=== PATIENT | male | born 1930 | race Caucasian/White ===

== ENCOUNTER 2016-09-08 23:59 | Inpatient (IN) ==
[2016-09-09] MEDS ORDERED: ALBUTEROL NEB INH ONE (00:20)
[2016-09-09] MEDS ORDERED: DUONEB (A & A) INH ONE (00:20)
[2016-09-09 00:25] LABS: BASO% 0.1 % (0.0-0.8); HEMATOCRIT 38.1 % (42.0-52.0); LYMPH# 0.49 X1000 (1.2-3.4); MANUAL DIFF NEEDED? NO; MCHC 34.1 g/dL (33-37); MCV 93.8 FL (81-99); MONO# 0.44 X1000 (0.11-0.59); MONO% 4.5 % (1.7-9.3); MPV 10.1 FL (7.4-10.4); NEUT% 90.4 % (42.2-75.2); PLT 174 X1000 (130-400); RBC 4.06 XMIL (4.7-6.1)
[2016-09-09] MEDS ORDERED: NS 1,000 ML IV ONE ×2 (00:34→01:06)
[2016-09-09] MEDS ORDERED: ZITHROMAX 500 MG/NS 500 MG/250 ML IVPB IV ONE (00:36)
[2016-09-09] MEDS ORDERED: ROCEPHIN 1 GM/NS 1 GM/50 ML IVPB IV ONE (00:36)
[2016-09-09 00:37] LABS: ALBUMIN 3.2 g/dL (3.5-5.0); CALCIUM 8.3 mg/dL (8.8-10.2); POTASSIUM 3.5 mmol/L (3.5-5.1); TOTAL BILIRUBIN 0.94 mg/dL (0.20-1.00); TOTAL PROTEIN 5.8 g/dL (6.3-8.3)
[2016-09-09] MEDS: ZOSYN 3.375 GM/NS 3.375 GM/50 ML IVPB IV SCH ×4 (03:52→20:20)
--- NOTE | 2016-09-09 05:19 | EKG Report ---
Test Performed on : 09/08/2016 11:57:44 PM Test Reason : Re-Ordered/AMS Blood Pressure : / mmHG Vent. Rate : 113 BPM Atrial Rate : 091 BPM P-R Int : 000 ms QRS Dur : 074 ms QT Int : 314 ms P-R-T Axes : 000 008 028 degrees QTc Int : 430 ms Atrial fibrillation. with rapid ventricular response. with premature ventricular or aberrantly condu cted complexes. Nonspecific ST abnormality Abnormal ECG When compared with ECG of 31-OCT-2013 12:43, No significant change was found Unconfirmed Result
[2016-09-09] MEDS: LASIX IV SCH ×2 (06:47→17:05)
[2016-09-09] MEDS: SYNTHROID PO SCH (06:48)
[2016-09-09] MEDS: PRILOSEC PO SCH (06:48)
--- NOTE | 2016-09-09 07:20 | HISTORY AND PHYSICAL ---
PRIMARY CARE PHYSICIAN: Dr. Cezar Barros. CHIEF COMPLAINT: Congestion and weakness. Low-grade temperature x1 day. HISTORY OF PRESENTING ILLNESS: An 86-year-old male with a history of atrial fibrillation, hypertension and COPD that presented to the emergency department with a 1-day history of having congestion, weakness and a low-grade temperature. The patient is a poor historian and most of the history is obtained from his . As per , the patient was feeling more congested and getting more weak. The patient was evaluated in the ER. He had a chest x-ray done which was suspicious for infiltrate and it was thought that he has underlying pneumonia. During his initial presentation he was hypotensive. He was given IV fluids, and his blood pressure had improved. Patient will need hospitalization for further management. At the time of my examination, he however denied having any nausea vomiting, diarrhea, chest pain, hemoptysis, melena, but complained of having low-grade temperature and some shortness of breath. PAST MEDICAL HISTORY: 1. Atrial fibrillation. 2. Myocardial infarction. 3. COPD. 4. Hypertension. PAST SURGICAL HISTORY: Back surgery, cervical fusion. ALLERGIES: No known drug allergies. CURRENT MEDICATIONS: As listed in the MAR. SOCIAL HISTORY: He is a former smoker. No history of alcohol or illicit drug use. FAMILY HISTORY: No history of coronary disease. REVIEW OF SYSTEMS: Twelve point systems is as in HPI. Other systems negative. PHYSICAL EXAMINATION: GENERAL: Cooperative, friendly male he is resting more comfortably now. VITAL SIGNS: Temperature 98.4 degrees, pulse 112, respirations 20, blood pressure initially was 80/44, now 106/49 saturating 94% on room air. HEENT: Atraumatic, normocephalic. Extraocular movements intact. PERRLA. NECK: No masses. CHEST: Bibasilar rales. CARDIOVASCULAR: Irregular. ABDOMEN: Soft. Positive bowel sounds. EXTREMITIES: No edema. NEUROLOGIC: He is awake, alert, oriented x1. : No bladder distention. SKIN: Warm. LABORATORIES AND STUDIES: WBC 9.78, hemoglobin 13.1, hematocrit 38.1, platelets 174,000, sodium 141, potassium 3.5, chloride 98, CO2 is 29, BUN is 36, creatinine 1.3, glucose is 109. ProBNP 7859. An 86-year-old elderly male with a history of atrial fibrillation, Hypertension , COPD and Dementia was brought to the emergency department due to patient having congestion and weakness and low-grade temp. It was thought that he has underlying pneumonia versus the possibility of CHF. However, he will need hospitalization for further management. Assessment: 1. Suspected pneumonia. 2. Sepsis syndrome with heart rate elevated and hypotension. 3 Probable congestive heart failure unspecified with elevated BNP in the 7000 range. 4 Atrial fibrillation is rate controlled. PLAN: 1. We will admit patient to [facility]. 2. We will check blood cultures and start patient on IV antibiotics. 3. We will check echocardiogram and continue gentle diuresis. 4. We will continue to monitor patient on telemetry. 5. We will put patient on DVT prophylaxis with SCDs. 6. We will continue to follow and reassess. cc: MD Cezar Cannon MD MTDD
--- NOTE | 2016-09-09 08:14 | Diag Imaging Result Document ---
PROCEDURE NAME: CHEST-PORTABLE - 09/09/2016 PORTABLE CHEST X-RAY: COMPARISON: 03/31/2016. FINDINGS: There is worsening ill-defined bibasilar infiltrate, right greater than left. Stable cardiomegaly and pulmonary vascular congestion. No obvious pulmonary edema. IMPRESSION: 1. Bibasilar infiltrates suggesting pneumonia. 2. Cardiomegaly and pulmonary vascular congestion.
[2016-09-09] MEDS: ADVAIR 500/50 DISKUS INH SCH ×3 (08:41→19:21)
[2016-09-09] MEDS: NAMENDA PO SCH (08:48)
[2016-09-09] MEDS: VITAMIN C PO SCH (08:48)
[2016-09-09] MEDS: ZETIA PO SCH (17:05)
[2016-09-09] MEDS: ASPIRIN PO SCH (20:21)
[2016-09-09] MEDS: THERA M PLUS PO SCH (20:21)
[2016-09-09] MEDS: SINGULAIR PO SCH (20:21)
[2016-09-09] MEDS: ROZEREM PO SCH (20:21)
[2016-09-09] MEDS: PROSCAR PO SCH (22:41)
[2016-09-09] MEDS: IMDUR PO SCH (22:41)
[2016-09-09] MEDS: CARDIZEM CD PO SCH (22:41)
[2016-09-09] MEDS: CARDURA PO SCH ×2 (22:42→22:47)
[2016-09-10] MEDS: ZOSYN 3.375 GM/NS 3.375 GM/50 ML IVPB IV SCH ×4 (03:28→20:37)
[2016-09-10] MEDS: LASIX IV SCH (05:45)
[2016-09-10] MEDS: SYNTHROID PO SCH ×2 (05:46→06:45)
[2016-09-10] MEDS: PRILOSEC PO SCH ×2 (05:46→06:45)
[2016-09-10] MEDS: ADVAIR 500/50 DISKUS INH SCH ×2 (07:47→19:20)
[2016-09-10 08:37] LABS: AGAP 14; BUN 31 mg/dL (8-22); CALCIUM 8.4 mg/dL (8.8-10.2); CHLORIDE 96 mmol/L (98-107); COSMO 285; POTASSIUM 2.9 mmol/L (3.5-5.1); SODIUM 140 mmol/L (136-145); TCO2 30 mmol/L (25-35)
[2016-09-10] MEDS: NAMENDA PO SCH (08:51)
[2016-09-10] MEDS: VITAMIN C PO SCH (08:51)
[2016-09-10 09:36] LABS: BASO% 0.1 % (0.0-0.8); EOS# 0.04 X1000 (0.0-0.7); EOS% 0.4 % (0.0-10.0); HEMATOCRIT 34.9 % (42.0-52.0); HEMOGLOBIN 11.8 g/dL (14.0-18.0); IMM GRAN# 0.02 X1000 (0.0-0.04); IMM GRAN% 0.2 % (0.0-0.5); LYMPH# 0.93 X1000 (1.2-3.4); LYMPH% 8.7 % (20.5-51.1); MANUAL DIFF NEEDED? YES; MCHC 33.8 g/dL (33-37); MCV 94.6 FL (81-99); MONO# 0.59 X1000 (0.11-0.59); MONO% 5.5 % (1.7-9.3); NEUT% 85.1 % (42.2-75.2); PLT 168 X1000 (130-400); RBC 3.69 XMIL (4.7-6.1)
[2016-09-10 09:54] LABS: BANDS 4 % (0-1); LYMPHS 10 % (21-51); MONO 6 % (1-9)
[2016-09-10] MEDS: K-LYTE CL PO SCH ×2 (10:36→20:38)
[2016-09-10] MEDS: PROSCAR PO SCH (17:13)
[2016-09-10] MEDS: ZETIA PO SCH (17:13)
[2016-09-10] MEDS: IMDUR PO SCH (17:13)
[2016-09-10] MEDS: ASPIRIN PO SCH (20:37)
[2016-09-10] MEDS: SINGULAIR PO SCH (20:37)
[2016-09-10] MEDS: ROZEREM PO SCH (20:37)
[2016-09-10] MEDS: THERA M PLUS PO SCH (20:38)
[2016-09-10] MEDS: CARDIZEM CD PO SCH (20:38)
[2016-09-10] MEDS: CARDURA PO SCH (20:38)
[2016-09-11] MEDS: ZOSYN 3.375 GM/NS 3.375 GM/50 ML IVPB IV SCH ×2 (01:56→03:14)
[2016-09-11] MEDS: ADVAIR 500/50 DISKUS INH SCH ×2 (07:22→21:35)
[2016-09-11] MEDS: PRILOSEC PO SCH (09:44)
[2016-09-11] MEDS: SYNTHROID PO SCH (09:45)
[2016-09-11] MEDS: VITAMIN C PO SCH (10:02)
[2016-09-11] MEDS: NAMENDA PO SCH (10:02)
[2016-09-11] MEDS: K-LYTE CL PO SCH ×2 (10:02→22:33)
--- NOTE | 2016-09-11 13:13 | Diag Imaging Result Document ---
PROCEDURE NAME: BA SWALLOW W/VIDEO SPEECH THER - 09/11/2016 MODIFIED BARIUM SWALLOW: COMPARISON: 09/19/2013. FINDINGS: Total fluoroscopy time was 32 seconds. 137 images were obtained. With thin liquids, on repeated swallows there was silent penetration and aspiration. There was a delayed cough reflex. With pureed solids, there was no penetration or aspiration. Overall, the swallowing mechanism was fairly good, but there was significant retention and pooling in the piriform sinuses. The esophagus was also evaluated. There is some mild to moderate tertiary wave formation compatible with presbyesophagus, but no hang-up of clearance of the distal esophagus. IMPRESSION: 1. Dysphagia as described above. 2. Mild presbyesophagus.
[2016-09-11] MEDS: ZETIA PO SCH (17:48)
[2016-09-11] MEDS: PROSCAR PO SCH (17:48)
[2016-09-11] MEDS: IMDUR PO SCH (17:48)
[2016-09-11] MEDS ORDERED: ATIVAN PO ONE (18:57)
[2016-09-11] MEDS: THERA M PLUS PO SCH ×2 (20:21→22:36)
[2016-09-11] MEDS: CARDURA PO SCH ×2 (20:22→22:36)
[2016-09-11] MEDS: AUGMENTIN PO SCH ×2 (20:23→22:34)
[2016-09-11] MEDS: ROZEREM PO SCH ×2 (20:23→22:35)
[2016-09-11] MEDS: CARDIZEM CD PO SCH ×2 (20:24→22:34)
[2016-09-11] MEDS: SINGULAIR PO SCH ×2 (20:24→22:35)
[2016-09-11] MEDS: ASPIRIN PO SCH ×2 (20:24→22:34)
[2016-09-12] MEDS: PRILOSEC PO SCH ×2 (06:17→06:24)
[2016-09-12] MEDS: SYNTHROID PO SCH ×2 (06:17→06:24)
[2016-09-12] MEDS ORDERED: HALDOL IM ONE (09:00)
[2016-09-12] MEDS: VITAMIN C PO SCH (11:04)
[2016-09-12] MEDS: K-LYTE CL PO SCH (11:04)
[2016-09-12] MEDS: AUGMENTIN PO SCH ×3 (11:04→22:21)
[2016-09-12] MEDS: NAMENDA PO SCH (11:05)
[2016-09-12] MEDS: PROSCAR PO SCH (16:45)
[2016-09-12] MEDS: IMDUR PO SCH (16:45)
[2016-09-12] MEDS: ZETIA PO SCH (16:45)
[2016-09-12] MEDS: ADVAIR 500/50 DISKUS INH SCH (19:08)
[2016-09-12] MEDS: ROZEREM PO SCH (22:20)
[2016-09-12] MEDS: SINGULAIR PO SCH (22:21)
[2016-09-12] MEDS: CARDURA PO SCH (22:21)
[2016-09-12] MEDS: CARDIZEM CD PO SCH (22:21)
[2016-09-12] MEDS: ASPIRIN PO SCH (22:21)
[2016-09-12] MEDS: THERA M PLUS PO SCH (22:21)
[2016-09-13] MEDS: HALDOL IM SCH ×2 (05:21→22:37)
[2016-09-13] MEDS: SYNTHROID PO SCH (06:20)
[2016-09-13] MEDS: PRILOSEC PO SCH (06:20)
[2016-09-13] MEDS: ADVAIR 500/50 DISKUS INH SCH ×2 (07:47→19:13)
[2016-09-13] MEDS ORDERED: HALDOL PO ONE (08:04)
[2016-09-13] MEDS: VITAMIN C PO SCH (09:19)
[2016-09-13] MEDS: NAMENDA PO SCH (09:19)
[2016-09-13] MEDS: AUGMENTIN PO SCH ×2 (09:19→22:37)
[2016-09-13] MEDS: IMDUR PO SCH (16:30)
[2016-09-13] MEDS: PROSCAR PO SCH (16:31)
[2016-09-13] MEDS: ZETIA PO SCH (16:31)
[2016-09-13] MEDS: ASPIRIN PO SCH (22:36)
[2016-09-13] MEDS: SINGULAIR PO SCH (22:36)
[2016-09-13] MEDS: CARDURA PO SCH (22:36)
[2016-09-13] MEDS: CARDIZEM CD PO SCH (22:37)
[2016-09-13] MEDS: ROZEREM PO SCH (22:37)
[2016-09-13] MEDS: THERA M PLUS PO SCH (22:37)
[2016-09-14 06:42] LABS: MANUAL DIFF NEEDED? NO
[2016-09-14 06:47] LABS: BASO% 0.1 % (0.0-0.8); EOS# 0.12 X1000 (0.0-0.7); EOS% 1.8 % (0.0-10.0); HEMATOCRIT 31.8 % (42.0-52.0); HEMOGLOBIN 10.6 g/dL (14.0-18.0); IMM GRAN# 0.03 X1000 (0.0-0.04); IMM GRAN% 0.4 % (0.0-0.5); LYMPH# 1.34 X1000 (1.2-3.4); LYMPH% 19.7 % (20.5-51.1); MCH 31.5 PG (27-31); MCHC 33.3 g/dL (33-37); MCV 94.4 FL (81-99); MONO# 0.81 X1000 (0.11-0.59); MONO% 11.9 % (1.7-9.3); MPV 10.4 FL (7.4-10.4); NEUT% 66.1 % (42.2-75.2); PLT 194 X1000 (130-400); RBC 3.37 XMIL (4.7-6.1)
[2016-09-14] MEDS: PRILOSEC PO SCH (06:48)
[2016-09-14] MEDS: SYNTHROID PO SCH (06:48)
[2016-09-14 07:16] LABS: AGAP 10; BUN 20 mg/dL (8-22); CALCIUM 8.5 mg/dL (8.8-10.2); CHLORIDE 99 mmol/L (98-107); COSMO 284; SODIUM 141 mmol/L (136-145); TCO2 32 mmol/L (25-35)
[2016-09-14] MEDS: ADVAIR 500/50 DISKUS INH SCH ×2 (07:33→19:17)
[2016-09-14] MEDS: VITAMIN C PO SCH (08:24)
[2016-09-14] MEDS: AUGMENTIN PO SCH ×2 (08:24→20:55)
[2016-09-14] MEDS: NAMENDA PO SCH (08:24)
[2016-09-14] MEDS: DUONEB (A & A) INH SCH ×2 (10:47→19:17)
[2016-09-14] MEDS: KLOR-CON PO SCH ×2 (13:56→20:55)
--- NOTE | 2016-09-14 15:46 | Diag Imaging Result Document ---
PROCEDURE NAME: CHEST-2 VIEWS - 09/14/2016 FRONTAL AND LATERAL CHEST, 2 VIEWS: FINDINGS: Compared to 09/09/2016. Small basilar infiltrates remain. The heart is not enlarged. The vessels are not distended. There are tiny pleural effusions blunting the posterior gutters. There has been prior surgery to the lower neck. IMPRESSION: Slight interval improvement.
[2016-09-14] MEDS: ZETIA PO SCH (16:24)
[2016-09-14] MEDS: PROSCAR PO SCH (16:24)
[2016-09-14] MEDS: IMDUR PO SCH (16:26)
[2016-09-14] MEDS: ASPIRIN PO SCH (20:54)
[2016-09-14] MEDS: CARDIZEM CD PO SCH (20:55)
[2016-09-14] MEDS: SINGULAIR PO SCH (20:55)
[2016-09-14] MEDS: HALDOL IM SCH (20:55)
[2016-09-14] MEDS: THERA M PLUS PO SCH (20:55)
[2016-09-14] MEDS: ROZEREM PO SCH (21:08)
[2016-09-14] MEDS: CARDURA PO SCH (21:09)
[2016-09-15] MEDS: PRILOSEC PO SCH (06:22)
[2016-09-15] MEDS: SYNTHROID PO SCH (06:23)
[2016-09-15] MEDS: DUONEB (A & A) INH SCH ×2 (07:56→19:04)
[2016-09-15] MEDS: ADVAIR 500/50 DISKUS INH SCH ×2 (07:56→19:04)
[2016-09-15] MEDS: KLOR-CON PO SCH ×2 (09:33→21:51)
[2016-09-15] MEDS: NAMENDA PO SCH (09:33)
[2016-09-15] MEDS: VITAMIN C PO SCH (09:33)
[2016-09-15] MEDS: AUGMENTIN PO SCH ×2 (09:33→21:51)
[2016-09-15] MEDS: IMDUR PO SCH (18:35)
[2016-09-15] MEDS: PROSCAR PO SCH (18:35)
[2016-09-15] MEDS: ZETIA PO SCH (18:35)
[2016-09-15] MEDS ORDERED: HALDOL PO SCH (21:00)
[2016-09-15] MEDS: CARDIZEM CD PO SCH (21:50)
[2016-09-15] MEDS: CARDURA PO SCH (21:51)
[2016-09-15] MEDS: THERA M PLUS PO SCH (21:51)
[2016-09-15] MEDS: ROZEREM PO SCH (21:51)
[2016-09-15] MEDS: ASPIRIN PO SCH (21:52)
[2016-09-15] MEDS: SINGULAIR PO SCH (21:52)
[2016-09-16] MEDS: SYNTHROID PO SCH (06:20)
[2016-09-16] MEDS: PRILOSEC PO SCH (06:20)
[2016-09-16] MEDS: DUONEB (A & A) INH SCH (07:29)
[2016-09-16] MEDS: ADVAIR 500/50 DISKUS INH SCH (07:29)
[2016-09-16] MEDS: AUGMENTIN PO SCH (08:09)
[2016-09-16] MEDS: VITAMIN C PO SCH (08:09)
[2016-09-16] MEDS: NAMENDA PO SCH (08:09)
[2016-09-16] MEDS ORDERED: HALDOL IM ONE (09:14)
[2016-09-16 11:31] VITALS: BP 132/83
--- NOTE | 2016-09-19 05:24 | PROVIDER DOCUMENTATION ---
This chart was entered by Kaley Back Scribe, acting as scribe for Jesus Carlson MD. HPI-General Adult - General Chief Complaint: Altered Mental Status Stated Complaint: ams Time Seen by Provider: 09/09/16 00:01 Source: patient Allergies/Adverse Reactions: Patient Allergies Allergy/AdvReac Type Severity Reaction Status Date / Time Reiznrd-Zzq-Noj Reductase Allergy Mild un Verified 10/31/13 11:11 Inhibitor Home Medications: Home Medication List Medication Instructions Recorded Confirmed Last Taken Type Aspirin 81 mg PO QHS 11/02/13 09/09/16 09/08/16 History Finasteride 5 mg PO WSUPPER 11/02/13 09/16/16 09/08/16 History Fluticasone/Salmet 500/50 INH 1 puff INH BID PRN 11/02/13 09/16/16 11/02/13 09: 00 History [Advair 500/50 Diskus] Doxazosin Mesylate [Cardura] 2 mg PO QPM 09/09/16 09/09/16 09/08/16 History Multivitamin [Multi-Vitamin Daily] 1 each PO QPM 09/09/16 09/16/16 09/08/16 History Albuterol 2.5MG/Ipratrop 0.5MG 3 ml INH BID 09/16/16 09/16/16 Unknown History [Duoneb (A & A)] Amoxicillin/Potassium Clav 1 tab PO ORDERED 09/16/16 09/16/16 Unknown History [Amox-Clav 875-125 mg Tablet] Ascorbic Acid [Vitamin C with 500 mg PO DAILY 09/16/16 09/16/16 Unknown History Acerola] Bumetanide [Bumetanide] 2 mg PO QAM 09/16/16 09/16/16 Unknown History Diltiazem HCl [Cartia Xt] 1 cap PO DAILY 09/16/16 09/16/16 Unknown History Ezetimibe [Zetia] 10 mg PO DAILY 09/16/16 09/16/16 Unknown History Haloperidol [Haldol] 1 mg PO QHS tablet 09/16/16 09/16/16 Unknown Rx Isosorbide Mononitrate E.r. [Imdur] 30 mg PO DAILY 09/16/16 09/16/16 Unknown History Levothyroxine Sodium 100 mcg PO DAILY 09/16/16 09/16/16 Unknown History Memantine HCl [Namenda Xr] 1 cap PO DAILY 09/16/16 09/16/16 Unknown History Metolazone [Metolazone] 1 tab PO DIRECTED 09/16/16 09/16/16 Unknown History Metolazone [Metolazone] 1 tab PO ORDERED 09/16/16 09/16/16 Unknown History Montelukast Sodium 10 mg PO QHS 09/16/16 09/16/16 Unknown History Omeprazole [Omeprazole] 40 mg PO DAILY 09/16/16 09/16/16 Unknown History Potassium Chloride [Klor-Con M20] 1 tab PO TID 09/16/16 09/16/16 Unknown History Ramelteon [Rozerem] 8 mg PO QHS tablet 09/16/16 09/16/16 Unknown Rx Torsemide [Demadex] 40 mg PO DIRECTED 09/16/16 09/16/16 Unknown History - History of Present Illness -Gen Adult Nature of Presenting Problems: 86 year old M presents to the ED with a cc of shortness of breath, fever of 100.2, and decreased appetite with an onset of 2 days. states that when pt breaths he sounds like he is rattling. called PCP today and he prescribed pt augmentin. PT has taken one dose. Onset/Duration: reports: 2 days ago Timing: reports: still present Context/Activities at Onset: reports: none Modifying Factors: improves with: nothing Associated Symptoms: reports: loss of appetite, shortness of breath Similar Symptoms Previously?: No Recently seen or treated by another doctor?: No Review of Systems - Adult - REVIEW OF SYSTEMS - ADULT Constitutional: denies: chills, fever Eyes: reports: no symptoms reported Ears, Nose, Mouth & Throat: reports: no symptoms reported Cardiovascular: denies: chest pain, palpitations Respiratory: reports: shortness of breath. denies: cough Gastrointestinal: reports: poor appetite. denies: abdominal pain, nausea, vomiting Genitourinary: reports: no symptoms reported Musculoskeletal: reports: no symptoms reported Integumentary: reports: no symptoms reported Neurological: reports: no symptoms reported Psychiatric: reports: no symptoms reported Endocrine: reports: no symptoms reported Hematologic/Lymphatic: reports: no symptoms reported Allergic/Immunologic: reports: no symptoms reported All Other Systems: Reviewed and Negative Past History - Adult - PAST MEDICAL HISTORY-ADULT Review of Records: reports: Nursing Assessment Review, Medications Reviewed Major Childhood Illnesses: reports: denies history Cardiovascular: reports: A-Fib, HTN, hyperlipidemia Respiratory: reports: COPD Gastrointestinal: reports: GERD Neurological: reports: dementia Endocrine/Immune: reports: thyroid disorder - PRIOR SURGERIES/PROCEDURES Surgical/Procedure History: reports: back/neck, other (cataract removal) - IMMUNIZATION STATUS Childhood Immunizations: See Nurse Assessment Flu Vaccine: See Nurse Assessment - SOCIAL HISTORY Smoking: quit greater than 1 year Substance Use: none/never Alcohol Use Frequency: never Physical Exam-General - PHYSICAL EXAM-ADULT Initial Vital Signs Reviewed: Yes - CONSTITUTIONAL General Appearance: appears well, alert, no apparent distress - RESPIRATORY Respiratory: chest non-tender, lungs clear, normal breath sounds - CARDIOVASCULAR Cardiovascular: tachycardia - GASTROINTESTINAL (ABDOMEN) Abdominal Exam: non tender, soft - MUSCULOSKELETAL Extremity: pedal edema (1+ bilateral lower extremity to mid ye) - SKIN Integumentary: normal color, normal turgor, warm/dry - PSYCHIATRIC Psych/Mental Status: oriented x 3 Progress - PLAN OF CARE/RESULTS Progress/Plan/Lab Results: Vital Signs - 8 hr 09/09/16 00:05 Temperature 98.4 F Pulse Rate 112 H Respiratory Rate 20 Blood Pressure 106/49 O2 Sat by Pulse Oximetry 94 L Laboratory Results - last 24 hr 09/09/16 00:02 POC Glucose 112 H Orders Category Date Time Status CHEST-PORTABLE [RAD] Stat Exams 09/09/16 00:09 Ordered BLOOD CULTURE [BLDCUL] Stat Lab 09/09/16 00:19 Uncollected BNP [PRO B-NATRIURETIC PEPTIDE] Stat Lab 09/09/16 00:12 Ordered CBC WITH ELECTRONIC DIFF [HEME] Stat Lab 09/09/16 00:12 Ordered CMP [COMPREHENSIVE METABOLIC PANEL] [CHEM] Stat Lab 09/09/16 00:12 Ordered LACTATE, PLASMA [CHEM] Stat Lab 09/09/16 00:12 Ordered TROPONIN T Stat Lab 09/09/16 00:12 Ordered Albuterol 2.5MG/Ipratrop 0.5MG [Duoneb (A & A)] Med 09/09/16 00:20 Discontinued 3 ml INH NOW ONE Albuterol [Albuterol Neb] Med 09/09/16 00:20 Discontinued 5 mg INH NOW ONE Aerosol Treatments Routine Oth 09/09/16 00:20 Active Aerosol Treatments Stat Oth 09/09/16 00:20 Active EKG [EKG] Stat Ther 09/09/16 00:00 Ordered Result Diagrams: 09/14/16 06:04 09/14/16 06:04 - EKG 1 Time of EKG reading by physician:: 23:57 EKG Read and Signed by:: Jesus Carlson EKG Interpretation (*Must complete 3 of following elements*): Abnormal Rate: 113 Rhythm: afib w/ RVR w/ PVCs or aberrantly conducted complexes ST Wave: non-specific ST changes - XRAY 1 XRAY Study: Chest Impression: Abnormal XRAY Interpretation: localized RLL infiltrate: Dr. Carlson(ER MD) - CONSULTS/PCP/HOSPITALIST Notification #1 *Consult/PCP/Hospitalist*: Dr. Craven(hospitalist) Time Discussed: 00:51 Consult Disposition: Will see in ED, Admit Departure - Departure Time of Disposition Decision: 00:53 DIAGNOSIS: Pneumonia Disposition: ADMITTED INPATIENT 09 Certified Medical Emergency: Emergent Condition: Serious - Critical Care Note This patient required my direct personal management.: No This chart was documented by the indicated scribe, (Kaley Back Scribe) and accurately reflects the services I performed and decisions made by me, Jesus Carlson MD, as attested by the provider's signature.
--- NOTE | 2016-09-19 17:41 | DISCHARGE SUMMARY ---
ADMISSION DATE: 09/09/2016 DISCHARGE DATE: 09/16/2016 . FINAL DIAGNOSES: 1. Bibasilar pneumonia, community acquired, aspiration pneumonitis suspected. 2. Moderate persistent asthma with extensive airway remodeling. 3. Potentially unsafe swallowing. 4. Essential hypertension. 5. Chronic atrial fibrillation. 6. History of coronary artery disease. 7. Dementia with delirium. 8. Sepsis syndrome. PRESENT ILLNESS: Mr. Fraga is an 86-year-old gentleman with extensive past medical history who presented to the emergency room with a 1-day history of chest congestion, weakness, low-grade temperature. One or 2 days prior to this admission he had been seen in my office with similar complaints and was started on oral Augmentin. He has a history of previous unsafe swallowing which responded to speech therapy. He was noted to be tachycardic with respiratory rate of 20, blood pressure 80/44. Bibasilar crackles were noted on physical examination. RECENT LABORATORY: White blood count 9800. Hemoglobin 13.1, platelet count 141,000. BUN 36, creatinine 1.3. ProBNP 7859. HOSPITAL COURSE: He was admitted to the medical floor treated with intravenous Zosyn. He was initially admitted to ICU because of sepsis syndrome and borderline elevated lactate level of 2.5. He was treated with intravenous Zosyn. Aspiration pneumonitis was suspected as the cause of his pneumonia due to bibasilar pattern and history of unsafe swallowing. Speech therapy evaluation was obtained. He was subsequently transferred to the medical floor when his condition stabilized. He had difficulty sleeping at night and became markedly confused and delirious. He required several doses of IM haloperidol. His pneumonia progressively improved. Speech therapy advised a barium swallow which was done and it was felt that he could be managed with conservative measures, sitting up in a chair for all p.o. intake and taking small bites and sips. Full recommendations in their notes. Initially plans were made for him to go to subacute rehab but to the extreme fluctuation in his mental status and continued delirium consultation was requested from Geriatric psychiatry, who felt he would benefit from inpatient treatment in their Geropsychiatric unit at [facility]. At that time, he had been on oral antibiotics for several days and chest x- rays documented slightly improvement. His O2 saturations were acceptable on room air. DISPOSITION: He was discharged to [facility] in stable condition. DISCHARGE INSTRUCTIONS: See transfer paperwork for discharge medications. cc: Cezar Barros MD
== END 2016-09-16 15:52 ==
LOC: ED 23:59 → ICU 09-09 02:03 → SUATTDRO 09-09 02:03 → 4N 09-09 21:17
PROVIDERS: ADMIT Internal Medicine; ATTEND Internal Medicine

== ENCOUNTER 2016-09-27 13:29 | Inpatient (IN) ==
[2016-09-27 14:28] LABS: MANUAL DIFF NEEDED? NO
[2016-09-27 14:33] LABS: BASO% 0.2 % (0.0-0.8); EOS# 0.05 X1000 (0.0-0.7); EOS% 0.6 % (0.0-10.0); HEMATOCRIT 33.3 % (42.0-52.0); HEMOGLOBIN 10.9 g/dL (14.0-18.0); LYMPH# 1.46 X1000 (1.2-3.4); LYMPH% 16.5 % (20.5-51.1); MCH 31.6 PG (27-31); MCHC 32.7 g/dL (33-37); MCV 96.5 FL (81-99); MONO# 0.87 X1000 (0.11-0.59); MONO% 9.8 % (1.7-9.3); MPV 10.3 FL (7.4-10.4); NEUT% 72.9 % (42.2-75.2); PLT 236 X1000 (130-400); RBC 3.45 XMIL (4.7-6.1)
--- NOTE | 2016-09-27 14:33 | Diag Imaging Result Document ---
PROCEDURE NAME: CHEST-2 VIEWS - 09/27/2016 SEATED AP AND LATERAL RADIOGRAPH OF THE CHEST: COMPARISON: 09/22/2016. FINDINGS: Bibasilar infiltrates are [id number] worse than the previous study. There is also a probable component of pulmonary venous congestion and interstitial edema plus or minus infection. There appears to be at least a small right effusion that is stable. Cardiac silhouette is unchanged. IMPRESSION: Slight worsening of bibasilar infiltrates as described.
[2016-09-27 14:48] LABS: AGAP 10; ALKALINE PHOSPHATASE 71 U/L (32-122); BUN 16 mg/dL (8-22); CALCIUM 8.4 mg/dL (8.8-10.2); CHLORIDE 101 mmol/L (98-107); COSMO 276; GOT 17 U/L (10-34); GPT 14 U/L (10-44); SODIUM 138 mmol/L (136-145); TCO2 27 mmol/L (25-35); TOTAL BILIRUBIN 0.38 mg/dL (0.20-1.00); TOTAL PROTEIN 6.3 g/dL (6.3-8.3)
--- NOTE | 2016-09-27 15:07 | PROVIDER DOCUMENTATION ---
HPI-General Adult - General Chief Complaint: Altered Mental Status Stated Complaint: AMS Time Seen by Provider: 09/27/16 13:32 Source: patient, family Allergies/Adverse Reactions: Patient Allergies Allergy/AdvReac Type Severity Reaction Status Date / Time Lnorucr-Mmb-Ocj Reductase Allergy Mild un Verified 10/31/13 11:11 Inhibitor morphine Allergy Unknown Verified 09/27/16 14:56 Home Medications: Home Medication List Medication Instructions Recorded Confirmed Last Taken Type Multivitamin [Multi-Vitamin Daily] 1 each PO QPM 09/09/16 09/16/16 09/08/16 History Bumetanide [Bumetanide] 2 mg PO QAM 09/16/16 09/16/16 Unknown History Ezetimibe [Zetia] 10 mg PO DAILY 09/16/16 09/16/16 Unknown History Omeprazole [Omeprazole] 40 mg PO DAILY 09/16/16 09/16/16 Unknown History Divalproex [Depakote Sprinkle] 500 mg PO QHS #120 capsule 09/25/16 Unknown Rx Duloxetine [Cymbalta] 30 mg PO DAILY #30 capsule 09/25/16 Unknown Rx Quetiapine [Seroquel] 50 mg PO QHS #30 tablet 09/25/16 Unknown Rx Albuterol 2.5MG/Ipratrop 0.5MG 3 ml INH RTQ6H neb 09/26/16 Unknown Rx [Duoneb (A & A)] Ascorbic Acid [Vitamin C] 500 mg PO DAILY #30 tablet 09/26/16 Unknown Rx Aspirin 81 mg PO HS #30 chewtab 09/26/16 Unknown Rx Diltiazem C.d. [Cardizem Cd] 120 mg PO QHS #30 capsule 09/26/16 Unknown Rx Diltiazem C.d. [Cardizem Cd] 180 mg PO QHS #30 capsule 09/26/16 Unknown Rx Finasteride [Proscar] 5 mg PO WSUPPER #30 tablet 09/26/16 Unknown Rx Fluticasone/Salmet 500/50 INH 1 puff INH RTBID #1 inhaler 09/26/16 Unknown Rx [Advair 500/50 Diskus] Guaifenesin E.r. [Mucinex] 600 mg PO BID #60 tablet 09/26/16 Unknown Rx Isosorbide Mononitrate E.r. [Imdur] 30 mg PO DAILY #30 tablet 09/26/16 Unknown Rx Levothyroxine [Synthroid] 100 microgm PO DAILY@0700 #30 09/26/16 Unknown Rx tablet Montelukast [Singulair] 10 mg PO QHS #30 tablet 09/26/16 Unknown Rx Potassium Chloride [Klor-Con M20] 1 tab PO TID #90 tab.er.prt 09/26/16 Unknown Rx Torsemide [Demadex] 20 mg PO DAILY #30 tablet 09/26/16 Unknown Rx - History of Present Illness -Gen Adult Nature of Presenting Problems: 86 yo WM with history of prgressive dementia was hospitalized at [facility] and subsequently transferred to [facility] on 09/17. He was discharged from [facility] on 09/26. Family says that rather than fluent but misdirected responses, his speech is now almost nonsensical. He cannot get up under his own power and cannot transfer. Multiple medications were altered at [place] with several additions. Location of Pain/Injury: reports: none Onset/Duration: reports: last week Timing: reports: still present Modifying Factors: improves with: other medication Associated Symptoms: reports: weakness. denies: cough, fever/chills, genitourinary problems, nausea, shortness of breath Similar Symptoms Previously?: Yes Recently seen or treated by another doctor?: Yes Review of Systems - Adult - REVIEW OF SYSTEMS - ADULT Constitutional: reports: see HPI Eyes: reports: no symptoms reported Ears, Nose, Mouth & Throat: reports: no symptoms reported Cardiovascular: reports: no symptoms reported Respiratory: reports: no symptoms reported Gastrointestinal: reports: no symptoms reported Genitourinary: reports: no symptoms reported Musculoskeletal: reports: no symptoms reported Integumentary: reports: no symptoms reported Neurological: reports: see HPI, other Psychiatric: reports: see HPI Endocrine: reports: no symptoms reported Hematologic/Lymphatic: reports: no symptoms reported Allergic/Immunologic: reports: no symptoms reported All Other Systems: Reviewed and Negative Past History - Adult - PAST MEDICAL HISTORY-ADULT Review of Records: reports: Old Records Reviewed, Nursing Assessment Review, Medications Reviewed, Social history reviewed & non-contributory. Major Childhood Illnesses: reports: denies history Cardiovascular: reports: A-Fib, HTN, hyperlipidemia Respiratory: reports: COPD, other (chronic/recurrent aspiration) Gastrointestinal: reports: GERD Neurological: reports: dementia Endocrine/Immune: reports: thyroid disorder - PRIOR SURGERIES/PROCEDURES Surgical/Procedure History: reports: back/neck, other (cataract removal) - IMMUNIZATION STATUS Childhood Immunizations: See Nurse Assessment Flu Vaccine: See Nurse Assessment - FAMILY HISTORY Family History: reviewed, not pertinent - SOCIAL HISTORY Smoking: denies, non-smoker Substance Use: none/never Alcohol Use Frequency: never Living Situation: other (with sitters and home health) Physical Exam-General - PHYSICAL EXAM-ADULT Initial Vital Signs Reviewed: Yes - CONSTITUTIONAL General Appearance: appears well, alert, no apparent distress - HEAD, EARS, NOSE, MOUTH & THROAT HENMT: normocephalic/atraumatic - NECK Neck: non-tender, supple - RESPIRATORY Respiratory: lungs clear, normal breath sounds, no pleuratic chest pain, no respiratory distress, no accessory muscle use, other (rattly cough (old)) - CARDIOVASCULAR Cardiovascular: normal peripheral pulses, regular rate, rhythm, no edema - GASTROINTESTINAL (ABDOMEN) Abdominal Exam: normal bowel sounds, non tender. negative: guarding - MUSCULOSKELETAL Back Exam: no CVA tenderness, no vertebral tenderness Extremity: pedal edema. negative: calf tenderness - SKIN Integumentary: normal color - NEUROLOGIC Neurologic: grossly normal, no motor/sensory deficits, other (faint resting tremor) - PSYCHIATRIC Psych/Mental Status: normal mood/affect, disoriented x 3 Progress - PLAN OF CARE/RESULTS Progress/Plan/Lab Results: Vital Signs - 8 hr 09/27/16 14:21 Temperature 98.8 F Pulse Rate 107 H Respiratory Rate 16 Blood Pressure 135/79 O2 Sat by Pulse Oximetry 97 Laboratory Results - last 24 hr 09/27/16 09/27/16 13:48 13:48 WBC 8.84 RBC 3.45 L Hgb 10.9 L Hct 33.3 L MCV 96.5 MCH 31.6 H MCHC 32.7 L RDW Std Deviation 14.6 H Plt Count 236 MPV 10.3 Immature Gran % (Auto) 0.0 Neut % (Auto) 72.9 Lymph % (Auto) 16.5 L [place] % (Auto) 9.8 H Eos % (Auto) 0.6 Baso % (Auto) 0.2 Immature Gran # (Auto) 0.00 Neut # (Auto) 6.44 Lymph # (Auto) 1.46 [place] # (Auto) 0.87 H Eos # (Auto) 0.05 Baso # (Auto) 0.02 Sodium 138 Potassium 4.0 Chloride 101 Carbon Dioxide 27 Anion Gap 10 BUN 16 Creatinine 0.8 Estimated GFR/1.73 m2 > 60 BUN/Creatinine Ratio 20 Glucose 87 Calculated Osmolality 276 Calcium 8.4 L Total Bilirubin 0.38 AST 17 ALT 14 Alkaline Phosphatase 71 Total Protein 6.3 Albumin 3.0 L Globulin 3.3 Albumin/Globulin Ratio 0.9 Orders Category Date Time Status Cardiac Monitoring DIRECTED Care 09/27/16 13:45 Active CHEST-2 VIEWS [RAD] Stat Exams 09/27/16 13:45 Draft CBC WITH ELECTRONIC DIFF [HEME] Stat Lab 09/27/16 13:48 Completed COMPREHENSIVE METABOLIC PANEL [CHEM] Stat Lab 09/27/16 13:48 Completed URINALYSIS [URINALYSIS] Stat Lab 09/27/16 13:46 Uncollected Result Diagrams: 09/27/16 13:48 09/27/16 13:48 Departure - Departure Time of Disposition Decision: 15:11 DIAGNOSIS: Acute cognitive decline, Weakness Disposition: ADMITTED INPATIENT 09 Certified Medical Emergency: Urgent Condition: Stable Referrals and Follow-Ups: None,PCP [Primary Care Provider] - - Critical Care Note This patient required my direct & personal management of CC.: No
[2016-09-27 15:44] LABS: URINE MICRO REVIEW NEEDED? NO; URINE SOURCE CATH
[2016-09-27 16:01] LABS: BILIRUBIN URINE NEGATIVE (NEGATIVE); BLOOD URINE NEGATIVE (NEGATIVE); COLOR YELLOW; GLUCOSE URINE NEGATIVE (NEGATIVE); LEUKOCYTES URINE NEGATIVE (NEGATIVE); NITRITE URINE NEGATIVE (NEGATIVE); PROTEIN URINE TRACE mg/dL (NEGATIVE); SP GRAVITY URINE 1.018; TURBIDITY URINE CLEAR (CLEAR); UROBILINOGEN URINE NORMAL (NORMAL)
--- NOTE | 2016-09-27 16:01 | ED EKG INTERP ---
This chart was entered by Gabby Mendez Scribe, acting as scribe for Terence Gill MD. EKG Interpretation - EKG Time of EKG reading by physician:: 13:37 EKG Read and Signed by:: Ricardo Philippe EKG Interpretation (*Must complete 3 of following elements*): Abnormal Rate: 107 Rhythm: A-FIB W/RVR W/ PVC'S AND PAC'S QRS: other (LOW VOLTAGE QRS) ST Wave: non-specific ST changes This chart was documented by the indicated scribe, (Gabby Mendez Scribe) and accurately reflects the services I performed and decisions made by me, Terence Gill MD, as attested by the provider's signature.
[2016-09-27 16:04] LABS: UR EPITHELIAL CELLS <10 /HPF (<10); URINE BACTERIA NEGATIVE /HPF; URINE RBC <10 /HPF (<10); URINE WBC <10 /HPF (<10)
[2016-09-27] MEDS ORDERED: LASIX IV ONE (16:15)
--- NOTE | 2016-09-27 16:51 | Diag Imaging Result Document ---
PROCEDURE NAME: HEAD W/O CONTRAST - 09/27/2016 CT HEAD WITHOUT CONTRAST: COMPARISON: 06/22/2011. FINDINGS: There is stable patchy mild low attenuation in the periventricular and subcortical white matter suggesting mild microangiopathy. There is no definite acute infarct given the limited sensitivity of CT versus MRI. There is no discrete intracranial mass, mass effect, or intracranial hemorrhage. Surrounding soft tissues and bony structures are essentially unremarkable. IMPRESSION: Stable chronic changes. No evidence of acute intracranial pathology.
--- NOTE | 2016-09-27 17:46 | HISTORY AND PHYSICAL ---
PRIMARY CARE PHYSICIAN: Dr. Cezar Barros. CHIEF COMPLAINT: Profound weakness, alteration of mental status. HISTORY OF PRESENT ILLNESS: An 86-year-old, white male with past medical history significant for atrial fibrillation, hypertension, COPD, dementia, and congestive heart failure presents for evaluation of above-mentioned symptoms. Current history of present illness began on September 09. At that time, patient was admitted to the hospital with congestion and weakness. The patient ultimately was diagnosed with presumed aspiration pneumonia and sepsis syndrome. Patient was treated with aggressive antibiotic therapy. With time, his clinical condition improved, but unfortunately, patient developed increased agitation above his baseline dementia. The patient was discharged to [facility] on 09/16/2016. While there, patient's condition waxed and waned. The patient's family noted intermittent ability to walk, however, this was not consistent. He had a persistent cough and congestion. Over the course of the last week, patient's mental capacity declined. The patient's daughter states that since approximately 1 week ago, he has not recognized her. He has experienced multiple falls while there, although I am unsure whether significant head trauma occurred. The patient was discharged home yesterday. Since there, he has been unable to arise without significant assistance from bed. This morning, he awoke and ate a reasonable breakfast with assistance. He slept until noon. At that time, a home health nurse evaluated the patient. I was contacted in regards to an oxygen saturation of 80%, significant congestion, and alteration above his baseline. I instructed the patient to come to the emergency department for further evaluation and management. Upon arrival, a full evaluation was pursued. The patient was noted to be profoundly altered. His examination was significant for crackles at bilateral bases and significant lower extremity edema. Chest x-ray was questionable for bibasilar infiltrates. Patient will be admitted to the hospital for full evaluation and management of each of these conditions. Of note, there has been no evidence of fevers, chills, nausea, vomiting, chest pain, dysuria, hematuria, pyuria, or change in bowel movements. PAST MEDICAL HISTORY: 1. Atrial fibrillation. 2. History of coronary artery disease status post myocardial infarction 2009. 3. COPD, followed by Dr. Castillo. 4. Hypertension. 5. Dementia with intermittent delirium. 6. Recent hospitalizations secondary to aspiration pneumonia. 7. Bilateral hearing loss. 8. Congestive heart failure, unknown type. CURRENT MEDICATIONS: 1. Diltiazem CD 120 mg +180 mg at bedtime. 2. Depakote 500 mg at bedtime (new). 3. Singulair 10 mg at bedtime. 4. Seroquel 50 mg at bedtime (new). 5. DuoNeb every 6 hours. 6. Albuterol inhaler as needed. 7. Vitamin C 500 mg daily. 8. Aspirin 81 mg at bedtime. 9. Bumex 2 mg daily. 10. Cymbalta 30 mg daily (new). 11. Zetia 10 mg daily. 12. Finasteride 5 mg daily. 13. Advair 500/50, 1 puff twice daily. 14. Guaifenesin ER 600 mg twice daily. 15. Imdur 30 mg daily. 16. Levothyroxine 100 mcg daily. 17. Multivitamin daily. 18. Prilosec 40 mg daily. 19. Potassium chloride 1 tablet 3 times daily. 20. Demadex 20 mg daily. ALLERGIES: Family answered no known drug allergies. SOCIAL HISTORY: Patient previously worked in [employer]. He smoked 1 pack per day for 20 years. He stopped in 1980. He denies alcohol or illicit drug use. FAMILY HISTORY: Patient's mother passed at age 85 secondary to complications of congestive heart failure. She had a history of diabetes. Patient's father passed in his 70s secondary to complications of a stroke. REVIEW OF SYSTEMS: A 12 point review of systems was performed. Pertinent positives and negatives are noted in the history present illness. PHYSICAL EXAMINATION: VITAL SIGNS: Temperature 98.8 degrees, heart rate 107, respirations 16, blood pressure is 135/79. GENERAL: Well nourished, well developed, altered, in no acute distress. HEENT: Normocephalic atraumatic. Pupils equal, round, reactive to light. Extraocular muscles intact. Sclerae anicteric. [place] conjunctivae. Oral and nasopharynx clear without exudate. NECK: Supple. No lymphadenopathy. No thyromegaly. No bruits auscultated. CARDIOVASCULAR: Irregularly irregular. No significant murmurs, rubs, or gallops. PULMONARY: Crackles at bilateral bases. Adequate air movement. ABDOMEN: Soft, nontender, nondistended. Positive bowel sounds. EXTREMITIES: Moves all extremities well. No significant clubbing or cyanosis. Patient has 1+ to 2+ lower extremity edema bilaterally. NEUROLOGIC: Cranial nerves 2 through 12 grossly intact. Motor and sensory grossly intact. Psychologic examination reveals confusion. LABORATORY DATA: White blood cell count 8.84, hemoglobin 10.9, hematocrit 33.3, platelet counts 236,000. Sodium 138, potassium 4.0, chloride 101, bicarb 27, BUN 16, creatinine 0.8, glucose 87, calcium 8.4, total bilirubin 0.38. Total protein 2.3, albumin 3.0. Alkaline phosphatase 71, AST 17, ALT 14. Urinalysis revealed trace protein and trace ketones. Valproic acid level 25. Chest x-ray revealed slight worsening of bibasilar infiltrates. CT scan of the head revealed stable chronic changes. No evidence of acute intracranial pathology. ASSESSMENT AND PLAN: 86-year-old, white male with past medical history as noted presents for evaluation of alteration of mental status, hypoxia, profound weakness, and volume overload. Patient will be admitted to the hospital for full evaluation and management of each of these conditions. 1. Admit to General Medicine. 2. Alteration of mental status/metabolic encephalopathy - the patient has baseline dementia. Unfortunately, there has been significant progression of his confusion. At this point, I suspect this may be secondary to a combination of medications and possible aspiration pneumonia. At this point, the risk of continuing Seroquel and Depakote outweighs the benefits. We will discontinue each of these. We will continue Cymbalta therapy. We will treat possible aspiration pneumonia as below. Depending on patient's progress, we will consider further radiologic imaging. 3. Possible aspiration pneumonia- patient's chest x-ray is significant for bibasilar infiltrates. We will treat patient with Zosyn and azithromycin therapy. This should cover both community- acquired and aspiration pathogens. We will remain aware that MRSA is not covered. Should he have progression of illness, we will have a low threshold for adding coverage. 4. Volume overload - the patient has 2+ lower extremity edema. I am concerned the patient may also have pulmonary edema/pleural effusions associated with the bibasilar infiltrates. We will start IV Lasix therapy. We will follow strict I's and O's. 5. Profound weakness - unfortunately, patient is unable to rise without significant assistance at this point. I discussed this in detail with family. He is unable to be cared for at home secondary to his mobility status. We will treat patient's above conditions as noted. We will start physical therapy. We will consider whether rehabilitation and possible shelter is most appropriate. 6. Atrial fibrillation- we will continue patient's home medications. 7. COPD - we will continue patient on bronchodilators. 8. Dementia - as above, patient has longstanding disease. His mental status has become more altered above his baseline dementia. We will treat as above. 9. Fluid, electrolytes nutrition. We will monitor electrolytes. Saline lock IV. Cardiac prudent diet with aspiration precautions. 10. Prophylaxis. The patient will be placed on subcu Lovenox. 11. Code status - patient is a DNR level 1. cc: Allen Corona MD
[2016-09-27] MEDS ORDERED: TYLENOL PO PRN (19:06)
[2016-09-27] MEDS: ZOSYN 3.375 GM/NS 3.375 GM/50 ML IVPB IV SCH (20:14)
[2016-09-27] MEDS: PROSCAR PO SCH (20:14)
[2016-09-27] MEDS: KLOR-CON PO SCH (20:14)
[2016-09-27] MEDS: SINGULAIR PO SCH (20:14)
[2016-09-27] MEDS: THERA M PLUS PO SCH (20:14)
[2016-09-27] MEDS: ASPIRIN PO SCH (20:14)
[2016-09-27] MEDS: MUCINEX PO SCH (20:14)
[2016-09-27] MEDS: ZITHROMAX 500 MG/NS 500 MG/250 ML IVPB IV SCH (20:15)
[2016-09-27] MEDS ORDERED: CARDIZEM CD PO SCH ×2 (21:00)
[2016-09-27] MEDS: DUONEB (A & A) INH SCH (21:30)
[2016-09-28] MEDS: ZOSYN 3.375 GM/NS 3.375 GM/50 ML IVPB IV SCH ×4 (03:16→22:23)
[2016-09-28] MEDS: DUONEB (A & A) INH SCH ×4 (04:31→22:38)
[2016-09-28] MEDS: ADVAIR 500/50 DISKUS INH SCH ×3 (04:34→22:38)
[2016-09-28 07:23] LABS: MANUAL DIFF NEEDED? NO
[2016-09-28 07:39] LABS: BASO% 0.6 % (0.0-0.8); EOS% 1.9 % (0.0-10.0); HEMOGLOBIN 11.2 g/dL (14.0-18.0); IMM GRAN# 0.03 X1000 (0.0-0.04); IMM GRAN% 0.6 % (0.0-0.5); LYMPH# 1.03 X1000 (1.2-3.4); LYMPH% 19.4 % (20.5-51.1); MCH 31.4 PG (27-31); MONO# 0.72 X1000 (0.11-0.59); MONO% 13.5 % (1.7-9.3); MPV 10.5 FL (7.4-10.4); PLT 195 X1000 (130-400); RBC 3.57 XMIL (4.7-6.1)
[2016-09-28 07:50] LABS: AGAP 10; ALBUMIN 2.6 g/dL (3.5-5.0); ALKALINE PHOSPHATASE 64 U/L (32-122); BUN 13 mg/dL (8-22); CALCIUM 8.3 mg/dL (8.8-10.2); CHLORIDE 105 mmol/L (98-107); COSMO 284; GOT 16 U/L (10-34); GPT 13 U/L (10-44); POTASSIUM 3.6 mmol/L (3.5-5.1); SODIUM 143 mmol/L (136-145); TCO2 28 mmol/L (25-35); TOTAL PROTEIN 5.9 g/dL (6.3-8.3)
[2016-09-28] MEDS: LOVENOX SUBQ SCH (08:17)
[2016-09-28] MEDS: IMDUR PO SCH (08:24)
[2016-09-28] MEDS: MUCINEX PO SCH ×2 (08:24→20:36)
[2016-09-28] MEDS: KLOR-CON PO SCH ×3 (08:25→16:44)
[2016-09-28] MEDS: CYMBALTA PO SCH (08:25)
[2016-09-28] MEDS: SYNTHROID PO SCH (08:25)
[2016-09-28] MEDS: VITAMIN C PO SCH (08:25)
[2016-09-28] MEDS: ZETIA PO SCH (08:25)
[2016-09-28] MEDS: PRILOSEC PO SCH (08:25)
[2016-09-28] MEDS ORDERED: LASIX IV ONE (12:10)
--- NOTE | 2016-09-28 14:36 | PROGRESS NOTE ---
DATE: 09/28/2016 SUBJECTIVE: The patient was admitted yesterday with alteration of mental status, hypoxia, profound weakness, and volume overload. Alteration of mental status was felt likely secondary to a combination of etiologies, but recent medication changes was highest on the differential list. Medications were adjusted. His potential pneumonia with associated hypoxia was treated with Zosyn and azithromycin therapy. Volume overload was treated with Lasix. Overall, patient's condition is largely unchanged. Patient does appear slightly more somnolent today than yesterday. His vital signs remain stable. His p.o. intake is marginal. There has been no evidence of fevers, chills, nausea, vomiting, shortness of breath, or chest discomfort. OBJECTIVE: T-max 98.8 degrees, heart rate 85-111, respirations 14-22, blood pressure 130-156 over 65-93.General: No acute distress. Cardiovascular: Irregularly irregular. No significant murmurs, rubs, or gallops. Pulmonary: Crackles at bilateral bases. Adequate air movement. Abdomen: Soft, nontender, nondistended. Positive bowel sounds. Extremities: Moves all extremities well. No significant clubbing, cyanosis, or edema. Dermatologic: Evaluation reveals no evidence of rash. LABORATORY DATA: White blood cell count 5.32, hemoglobin 11.2, hematocrit 35.0, platelet count is 195,000. Sodium 143, potassium 3.6, chloride 105, bicarb 28, BUN 13, creatinine 0.8, glucose 73, calcium 8.3, total bilirubin 0.40, total protein 5.9, albumin 2.6, alkaline phosphatase 64, AST 16, ALT 13. ASSESSMENT AND PLAN: 1. Alteration of mental status/metabolic encephalopathy - The patient's condition consisted of symptoms above baseline dementia. I continue to suspect this is multifactorial. I am concerned that recent medication changes likely exacerbated this condition. The patient's Seroquel and Depakote have been held. Cymbalta was continued. Despite this, patient is somewhat somnolent today. For now, we will continue to monitor clinically. Should somnolence persists, we will consider further evaluation. We will treat patient's aspiration pneumonia and volume overload as described below. 2. Probable aspiration pneumonia - The patient's chest x-ray demonstrates increasing infiltrate. We will continue Zosyn and azithromycin therapy to cover both aspiration and community- acquired etiologies. We will encourage incentive spirometry. We will continue aspiration precautions. 3. Volume overload - Yesterday, patient had 2+ lower extremity edema bilaterally. Today the patient has approximately 1+ lower extremity edema bilaterally. We will re-treat patient with Lasix IV today. We will follow strict I's and O's. We will monitor patient's potassium and renal function with diuresis. 4. Profound weakness - As above, patient is somnolent today. At this point, we are unable to perform a significant amount of physical therapy. We will treat patient's conditions as above. Once able, we will initiate physical therapy and consider whether rehabilitation at discharge is appropriate. 5. Atrial fibrillation - We will continue patient on home medications. 6. Chronic obstructive pulmonary disease - We will continue bronchodilators as prescribed. 7. Dementia - As above, patient has baseline dementia. We will continue his home regimen with the exception of medication changes as described above. 8. Disposition - At this point, patient continues to require alf care in a hospital setting. We will plan discharge home once appropriate. cc: MD Cezar Castro MD
[2016-09-28] MEDS: PROSCAR PO SCH (16:44)
[2016-09-28] MEDS ORDERED: CARDIZEM PO SCH ×2 (18:32→21:00)
[2016-09-28] MEDS: ZITHROMAX 500 MG/NS 500 MG/250 ML IVPB IV SCH (20:35)
[2016-09-28] MEDS: THERA M PLUS PO SCH (20:36)
[2016-09-28] MEDS: ASPIRIN PO SCH (20:36)
[2016-09-28] MEDS: SINGULAIR PO SCH (20:37)
[2016-09-29] MEDS: ZOSYN 3.375 GM/NS 3.375 GM/50 ML IVPB IV SCH ×2 (02:19→08:26)
[2016-09-29] MEDS: DUONEB (A & A) INH SCH (05:05)
--- NOTE | 2016-09-29 05:34 | EKG Report ---
Test Performed on : 09/28/2016 5:26:19 PM Test Reason : tachycardia Blood Pressure : / mmHG Vent. Rate : 125 BPM Atrial Rate : 081 BPM P-R Int : 000 ms QRS Dur : 086 ms QT Int : 326 ms P-R-T Axes : 000 015 081 degrees QTc Int : 470 ms Atrial fibrillation. with rapid ventricular response. Nonspecific ST and T wave abnormality Abnormal ECG When compared with ECG of 27-SEP-2016 13:37, Nonspecific T wave abnormality now evident in Lateral leads Confirmed by Jose Martin GUTIERREZ, Ricardo Swan ([id number]) on 09/29/2016 11:23:41 AM
[2016-09-29] MEDS: SYNTHROID PO SCH (06:11)
--- NOTE | 2016-09-29 06:26 | EKG Report ---
Test Performed on : 09/27/2016 1:37:19 PM Test Reason : Blood Pressure : / mmHG Vent. Rate : 107 BPM Atrial Rate : 141 BPM P-R Int : 000 ms QRS Dur : 082 ms QT Int : 334 ms P-R-T Axes : 000 019 041 degrees QTc Int : 445 ms Atrial fibrillation. with rapid ventricular response. with premature ventricular or aberrantly condu cted complexes. Low voltage QRS Nonspecific ST abnormality Abnormal ECG When compared with ECG of 18-SEP-2016 08:19, No significant change was found Unconfirmed Result
[2016-09-29 07:54] LABS: AGAP 10; BUN 16 mg/dL (8-22); CALCIUM 8.6 mg/dL (8.8-10.2); CHLORIDE 105 mmol/L (98-107); COSMO 286; POTASSIUM 3.8 mmol/L (3.5-5.1); SODIUM 143 mmol/L (136-145); TCO2 28 mmol/L (25-35)
[2016-09-29] MEDS: KLOR-CON PO SCH ×3 (08:25→16:04)
[2016-09-29] MEDS: IMDUR PO SCH (08:25)
[2016-09-29] MEDS: CARDIZEM PO SCH ×2 (08:25→21:31)
[2016-09-29] MEDS: PRILOSEC PO SCH (08:25)
[2016-09-29] MEDS: MUCINEX PO SCH ×2 (08:25→21:31)
[2016-09-29] MEDS: VITAMIN C PO SCH (08:25)
[2016-09-29] MEDS: ZETIA PO SCH (08:26)
[2016-09-29] MEDS: LOVENOX SUBQ SCH (08:26)
[2016-09-29] MEDS: CYMBALTA PO SCH (08:26)
[2016-09-29] MEDS ORDERED: CARDIZEM PO SCH (09:00)
[2016-09-29] MEDS: DEMADEX PO SCH (09:34)
[2016-09-29] MEDS: ALBUTEROL NEB INH PRN ×3 (09:53→19:45)
[2016-09-29] MEDS: ADVAIR 500/50 DISKUS INH SCH ×2 (09:53→19:45)
[2016-09-29] MEDS: PROSCAR PO SCH (16:04)
[2016-09-29] MEDS ORDERED: ROZEREM PO SCH (21:00)
[2016-09-29] MEDS: THERA M PLUS PO SCH (21:31)
[2016-09-29] MEDS: ASPIRIN PO SCH (21:31)
[2016-09-30] MEDS: ALBUTEROL NEB INH PRN ×4 (03:18→15:09)
[2016-09-30] MEDS: SYNTHROID PO SCH (06:01)
[2016-09-30] MEDS: ADVAIR 500/50 DISKUS INH SCH (07:05)
[2016-09-30 08:10] VITALS: BP 105/54
[2016-09-30] MEDS: KLOR-CON PO SCH ×2 (09:32→15:31)
[2016-09-30] MEDS: MUCINEX PO SCH (09:32)
[2016-09-30] MEDS: IMDUR PO SCH (09:32)
[2016-09-30] MEDS: PRILOSEC PO SCH (09:32)
[2016-09-30] MEDS: DEMADEX PO SCH (09:32)
[2016-09-30] MEDS: CARDIZEM PO SCH (09:33)
[2016-09-30] MEDS: CYMBALTA PO SCH (09:33)
[2016-09-30] MEDS: LOVENOX SUBQ SCH (09:35)
--- NOTE | 2016-09-30 13:58 | DISCHARGE SUMMARY ---
ADMISSION DATE: 09/27/2016 DISCHARGE DATE: 09/29/2016 FINAL DIAGNOSES: 1. Alzheimer dementia with delirium. 2. Profound weakness and physical deconditioning. 3. History of aspiration pneumonitis. 4. Chronic atrial fibrillation. 5. Chronic obstructive pulmonary disease. 6. History of coronary artery disease. 7. History of essential hypertension. 8. Presbyacusis, severe. PRESENT ILLNESS: Mr. Fraga is a 86-year-old gentleman with a long history of hypertension, asthma with airway remodeling typical for COPD and a several year history of progressive dementia and recurrent episodes of aspiration pneumonia. He was admitted to this hospital 3 weeks ago with aspiration pneumonia and discharged to [facility] due to hypoactive delirium superimposed on his dementia. He was treated and released from there last Thursday. His states that when he got home he was too weak to get out of bed and when the home health nurse came to admit him on Thursday morning she realized he would need to be back in the hospital and called an ambulance. He was evaluated by my call coverage on Thursday who agreed that he needed hospitalization for his altered mental status and profound weakness. PHYSICAL EXAMINATION: Vital signs: He was afebrile with respiratory rate of 16 , blood pressure 135/79, heart rate 107. General Appearance: Slightly obtunded elderly gentleman. HEENT: Unremarkable. Neck: Supple without JVD. Cardiovascular: Irregular regular rhythm with controlled rate. No murmurs or gallops. Respiratory: A few scattered sticky crackles in both bases with good air movement. Abdomen: Soft and nontender with active bowel sounds. Neurologic Exam: Was remarkable for sleepiness and confusion. DIAGNOSTIC DATA: CT scan of the brain revealed stable chronic changes without acute intracranial pathology. Chest x-ray showed bibasilar infiltrates perhaps a little worse. HOSPITAL COURSE: He was admitted to the medical floor. Dr. Corona, the covering physician, felt that his sleepiness was probably due to excessive medication and held quite a few of his psychiatric medications. The following day physical therapy attempted to exercise him and he was too sleepy to respond and only passive range of motion was done. Thursday morning however he was much improved and alert, cooperative and could be temporarily oriented. He did respond fairly well to physical therapy, was able to walk a few steps today. He seems significantly improved but would still benefit from rehabilitation stay. At time of discharge he is alert and mostly cooperative, at least noncombative. I think he has a fair prognosis at rehab. His long-term prognosis remains fairly grim however. I will continue to follow him at [facility]. DISCHARGE MEDICATIONS: Albuterol nebulizer MAT treatments half strength every 4 hours only as needed for dyspnea, Rozerem 8 mg at bedtime for sleep, acetaminophen 650 mg q.4 hours p.r.n. for pain or fever, multivitamin 1 daily, omeprazole 40 mg daily before breakfast, bumetanide 2 mg q.a.m., duloxetine 30 mg daily, aspirin 81 mg daily, finasteride 5 mg daily, guaifenesin ER 600 mg twice a day, Cardizem CD 120 mg at bedtime, Advair 500/50 one inhalation twice a day, Imdur 30 mg q.a.m., levothyroxine 100 mg daily, potassium chloride 20 mEq 3 times a day , MiraLAX 17 g p.o. daily in water. cc: Cezar Barros MD MTDD
== END 2016-09-30 17:37 ==
LOC: ED 13:29 → 3N 18:08
PROVIDERS: ADMIT Internal Medicine; ATTEND Internal Medicine

== ENCOUNTER 2016-10-10 11:10 | Inpatient (IN) ==
[2016-10-10] MEDS ORDERED: ASPIRIN PO STA (11:14)
[2016-10-10] MEDS ORDERED: XOPENEX NEB INH ONE (11:14)
[2016-10-10] MEDS ORDERED: NS NEB INH SCH (11:15)
[2016-10-10 11:40] LABS: URINE CULTURE NEEDED? NO; URINE MICRO REVIEW NEEDED? NO; URINE SOURCE CATH
[2016-10-10] MEDS ORDERED: CARDIZEM IV ONE (11:43)
[2016-10-10 11:51] LABS: BILIRUBIN URINE NEGATIVE (NEGATIVE); BLOOD URINE NEGATIVE (NEGATIVE); COLOR YELLOW; GLUCOSE URINE NEGATIVE (NEGATIVE); LEUKOCYTES URINE NEGATIVE (NEGATIVE); NITRITE URINE NEGATIVE (NEGATIVE); PH URINE 6.5; PROTEIN URINE 30 mg/dL (NEGATIVE); SP GRAVITY URINE 1.018; TURBIDITY URINE CLEAR (CLEAR); UR EPITHELIAL CELLS <10 /HPF (<10); URINE BACTERIA NEGATIVE /HPF; URINE RBC <10 /HPF (<10); URINE WBC <10 /HPF (<10); UROBILINOGEN URINE 2 mg/dL (NORMAL)
--- NOTE | 2016-10-10 11:51 | Diag Imaging Result Doc PS360 ---
EXAM: CHEST-PORTABLE HISTORY: SOB TECHNIQUE: AP portable at 1140 COMMENT: The inspiration is better than on 09/27/2016. There is better pneumatization of the lower lung soto. There is still fluffy alveolar opacity over the right hemidiaphragm and interstitial edema. The heart size remains slightly enlarged. IMPRESSION: Pulmonary edema versus pneumonia. Electronically signed by Otto Roach 10/10/2016 11:48 AM
[2016-10-10 11:58] LABS: ALLEN TEST YES; BE 4.8 mmoll (-3.0-3.0); BLOOD TYPE ARTERIAL; DRAW SITE L RADIAL; METHB 1.3 % (0.0-1.5); O2(CT) 16.8 mL/dL (15.0-23.0); PCO2(98.6) 36 mmHg (35-45); PO2(98.6) 131 mmHg (60-100); SAMPLE BLOOD; SAO2 99.3 % (95.0-100.0); THB 12.2 g/dL (11.5-17.4)
[2016-10-10 11:59] LABS: INR 1.05; PROTIME 11.1 Seconds (9.2-11.7); PTT 32.3 Seconds (22.0-36.0)
[2016-10-10 11:59] LABS: MODALITY NRB
[2016-10-10] MEDS: CARDIZEM 100 MG/NS 100 MG/100 ML IVPB IV SCH ×2 (12:06→21:55)
[2016-10-10] MEDS ORDERED: ZITHROMAX 500 MG/NS 500 MG/250 ML IVPB IV ONE (12:18)
[2016-10-10] MEDS ORDERED: ROCEPHIN 1 GM/NS 1 GM/50 ML IVPB IV ONE (12:18)
--- NOTE | 2016-10-10 12:23 | EKG Report ---
Test Performed on : 10/10/2016 11:16:04 AM Test Reason : Chest Pain Blood Pressure : / mmHG Vent. Rate : 146 BPM Atrial Rate : 127 BPM P-R Int : 000 ms QRS Dur : 076 ms QT Int : 336 ms P-R-T Axes : 000 008 090 degrees QTc Int : 523 ms Atrial fibrillation. with rapid ventricular response. ST \T\ T wave abnormality, consider lateral ischemia Abnormal ECG When compared with ECG of 28-SEP-2016 17:26, ST more depressed in Anterior leads T wave inversion now evident in Anterior leads Unconfirmed Result
[2016-10-10 12:26] LABS: AGAP 14; ALBUMIN 3.3 g/dL (3.5-5.0); ALKALINE PHOSPHATASE 86 U/L (32-122); BUN 13 mg/dL (8-22); CALCIUM 8.9 mg/dL (8.8-10.2); CHLORIDE 100 mmol/L (98-107); CK PROFILE 31 U/L (24-204); COSMO 279; GOT 19 U/L (10-34); GPT 15 U/L (10-44); POTASSIUM 3.8 mmol/L (3.5-5.1); SODIUM 139 mmol/L (136-145); TCO2 25 mmol/L (25-35); TOTAL BILIRUBIN 0.53 mg/dL (0.20-1.00); TOTAL PROTEIN 7.2 g/dL (6.3-8.3)
[2016-10-10] MEDS ORDERED: LASIX IV ONE (12:35)
[2016-10-10] MEDS ORDERED: TYLENOL PO ONE (12:36)
[2016-10-10 12:45] LABS: BASO% 0.1 % (0.0-0.8); EOS# 0.04 X1000 (0.0-0.7); EOS% 0.2 % (0.0-10.0); HEMATOCRIT 36.8 % (42.0-52.0); HEMOGLOBIN 11.9 g/dL (14.0-18.0); IMM GRAN# 0.06 X1000 (0.0-0.04); IMM GRAN% 0.3 % (0.0-0.5); LYMPH% 4.7 % (20.5-51.1); MANUAL DIFF NEEDED? NO; MCHC 32.3 g/dL (33-37); MCV 95.8 FL (81-99); MONO# 1.63 X1000 (0.11-0.59); MONO% 7.6 % (1.7-9.3); MPV 10.4 FL (7.4-10.4); NEUT% 87.1 % (42.2-75.2); PLT 324 X1000 (130-400); RBC 3.84 XMIL (4.7-6.1)
--- NOTE | 2016-10-10 13:08 | ED EKG INTERP ---
This chart was entered by Daija Agee Scribe, acting as scribe for Samantha Erickson MD. EKG Interpretation - EKG Time of EKG reading by physician:: 11:16 EKG Read and Signed by:: Samantha Erickson EKG Interpretation (*Must complete 3 of following elements*): Abnormal Rate: 146 Rhythm: AFIB WITH RVR [place]: normal QRS: normal MT Interval: normal ST Wave: non-specific ST changes This chart was documented by the indicated scribe, (Daija Agee Scribe) and accurately reflects the services I performed and decisions made by Georgina snow Tom-Meka M., MD, as attested by the provider's signature.
--- NOTE | 2016-10-10 14:47 | HISTORY AND PHYSICAL ---
CHIEF COMPLAINT: Hypoxemia, rapid atrial fibrillation. PRESENT ILLNESS: Mr. Fraga is an 86-year-old gentleman with a recent history of aspiration pneumonia, worsening dementia, and superimposed delirium. This morning, I received a call from his rehab facility that his O2 saturation, which previously have been acceptable on room air was in the low 70s, and had only improved to the high 70s with 2 L of nasal oxygen. He was also noted to be very tachycardic with a heart rate of 120-140. He was sent to the emergency room for evaluation and was found to have a new right-sided pulmonary infiltrate, [place] [address]. His has been staying with him most of the time at rehab and says that prior to today he has been cooperating with physical therapy and walking some during the day, but at night time has only slept an hour or 2 at a time and then been restless and agitated and confused the rest of the night. He was initially hospitalized a month ago with what was felt to be aspiration pneumonia. This improved with antibiotics but he became more delirious and was transferred to the [facility] [place] for inpatient Geriopsychiatric rehab. He was discharged after approximately a week home but was too weak to get out of bed and readmitted here a little over a week ago. His weakness improved after several of his antipsychotic medicines were discontinued and he went to rehab approximately 12 days ago and I last saw him 1 week ago. At that time he was sitting up in a chair talking to his family and was doing well except for the agitation at night. He was prescribed a few days doses of bedtime Haldol. This apparently did not improve things. He has chronic atrial fibrillation with rate controlled from diltiazem. Has long-standing respiratory problems which seem to be an overlap syndrome between asthma and COPD. PAST MEDICAL HISTORY: 1. History of coronary artery disease. 2. Essential hypertension. 3. Profoundly deaf. 4. He has known Alzheimer's dementia with progressive memory loss over the last 4-5 years. He was on dementia medications until recently stopped by the psychiatrist. As summarized above, he had a significant episode of aspiration pneumonia 4-5 years ago following urologic surgery, and at that time was seen by speech therapy and his swallowing improved markedly over several weeks of outpatient vitals-stim therapy. He was seen by speech therapy one month ago and not felt to have unsafe swallowing. HOME MEDICATIONS: See recent discharge medication list. FAMILY HISTORY: Noncontributory. SOCIAL HISTORY: He is and lives with his until his recent illness. He does not use alcohol or tobacco. REVIEW OF SYSTEMS: Unobtainable except as above. PHYSICAL EXAMINATION: VITAL SIGNS: Temperature 101.3 degrees, heart rate 134, respirations 34, blood pressure 161/120, O2 saturation is 100% on non-rebreather mask. GENERAL APPEARANCE: Initially he was poorly responsive, but during the examination he opened his eyes and seems to recognize me and smiled some. His hearing aids are out and he does not respond to voices. SKIN: Slightly pale but warm and slightly diaphoretic. His skin turgor is adequate. HEENT: No visible evidence of trauma. Pupils equal, round, reactive to light and accommodation. Oropharynx is benign. NECK: Supple with no tenderness, JVD, thyromegaly or bruits. CHEST EXAM: Air movement is fairly good. I do not appreciate any crackles or wheezing. There is slightly bronchial breath sounds over the right axilla. ABDOMEN: Soft and nontender with active bowel sounds. There is no guarding or rebound tenderness. No masses are palpable. EXTREMITIES: Moderate pitting edema to mid calf. NEUROLOGIC: Mental status was alternating with lethargy and occasional restlessness and agitation. There is no obvious facial asymmetry. He moves all extremities but not necessarily on command. LABORATORY: White blood count 94705. Hemoglobin 11.9, hematocrit 36.8%, platelet count is normal. ABG pH 7.50, pCO2 36, PO2 131 on 100% non-rebreather. Electrolytes were normal. BUN 13, creatinine 0.8, glucose 124, albumin 3.3. Plasma lactate 1.1, proBNP 5187, slightly improved. Chest x-ray improved inspiration with fluffy alveolar opacity over the right hemidiaphragm and some interstitial edema. Heart size remains slightly enlarged. ASSESSMENT: 1. Recurrent pneumonia, probably aspiration, evidenced by his hypoxemia and elevated white blood count as well as pulmonary infiltrate. 2. Dementia with delirium. This seems to be a particularly ominous prognostic sign. I have discussed futility of care with his and told her that I felt that if he had to be placed on a respirator he might never come off, and that we may eventually need to decide for comfort care only and she will consider this. But for now, we will leave him a full code. 3. Chronic lung disease, overlap syndrome with chronic obstructive pulmonary disease and asthma although he is a nonsmoker. 4. Essential hypertension. 5. History of coronary artery disease. 6. Chronic atrial fibrillation with rapid fibrillar rate due to the metabolic stress of his infection. TREATMENT PLAN: He has already been given some IV antibiotics and started on a Cardizem drip. I think he needs broader antibiotic coverage particularly for aspiration and potential healthcare associated pneumonia, so I have changed this to Levaquin, clindamycin and 1 dose of vancomycin pending nasotracheally obtained sputum culture. He will be admitted to CICU for heart rate control and hopefully can be changed to his oral medication and transferred out relatively quickly. He likely has some evidence of fluid overload so we will give some Lasix. cc: Cezar Barros MD
[2016-10-10] MEDS ORDERED: VANCOMYCIN 1 GM/NS 1 GM/250 ML IVPB IV ONE (14:51)
[2016-10-10] MEDS ORDERED: TYLENOL PO PRN (14:51)
[2016-10-10] MEDS: LOVENOX SUBQ SCH (16:09)
[2016-10-10] MEDS: CLINDAMYCIN 600 MG/NS 600 MG/50 ML IVPB IV SCH ×2 (17:38→21:57)
[2016-10-10] MEDS ORDERED: HALDOL IM ONE (18:00)
[2016-10-10] MEDS ORDERED: LEVAQUIN 500 MG/D5W 500 MG/100 ML IVPB IV SCH (18:00)
[2016-10-10] MEDS: ALBUTEROL NEB INH PRN (19:36)
[2016-10-10] MEDS ORDERED: ATIVAN IV ONE (19:38)
[2016-10-10] MEDS ORDERED: CARDIZEM CD PO SCH ×2 (21:00)
[2016-10-11] MEDS: CATAPRES PO SCH ×2 (05:40→22:14)
[2016-10-11 05:54] LABS: BASO% 0.1 % (0.0-0.8); EOS# 0.04 X1000 (0.0-0.7); EOS% 0.2 % (0.0-10.0); HEMOGLOBIN 10.7 g/dL (14.0-18.0); IMM GRAN# 0.03 X1000 (0.0-0.04); IMM GRAN% 0.2 % (0.0-0.5); LYMPH# 0.98 X1000 (1.2-3.4); LYMPH% 5.8 % (20.5-51.1); MANUAL DIFF NEEDED? YES; MCH 31.3 PG (27-31); MCHC 32.4 g/dL (33-37); MCV 96.5 FL (81-99); MONO# 1.16 X1000 (0.11-0.59); MONO% 6.8 % (1.7-9.3); MPV 10.5 FL (7.4-10.4); NEUT% 86.9 % (42.2-75.2); PLT 271 X1000 (130-400); RBC 3.42 XMIL (4.7-6.1)
[2016-10-11] MEDS: CLINDAMYCIN 600 MG/NS 600 MG/50 ML IVPB IV SCH ×2 (06:06→14:03)
[2016-10-11] MEDS: SYNTHROID PO SCH (06:49)
[2016-10-11] MEDS ORDERED: PRILOSEC PO SCH (07:00)
[2016-10-11] MEDS ORDERED: ROCEPHIN 1 GM/NS 1 GM/50 ML IVPB IV SCH (07:15)
[2016-10-11] MEDS ORDERED: CALMOSEPTINE OINTMENT TOP PRN (07:15)
[2016-10-11 07:32] LABS: BANDS 10 % (0-1); LYMPHS 4 % (21-51); MONO 6 % (1-9)
[2016-10-11] MEDS: PROTONIX IV SCH (08:03)
[2016-10-11] MEDS: SODIUM CHLORIDE 0.9% INJ SCH (08:03)
[2016-10-11] MEDS: CARDIZEM 100 MG/NS 100 MG/100 ML IVPB IV SCH ×2 (08:04→16:16)
[2016-10-11] MEDS: ATIVAN IV PRN ×3 (08:04→17:04)
[2016-10-11] MEDS ORDERED: CYMBALTA PO SCH (09:00)
[2016-10-11] MEDS ORDERED: IMDUR PO SCH (09:00)
--- NOTE | 2016-10-11 09:35 | PROGRESS NOTE ---
DATE: 10/11/2016 SUBJECTIVE: Mr. Tyler was admitted to [facility] with acute respiratory failure with hypoxia secondary to acute chronic obstructive pulmonary disease exacerbation, complicated by an aspiration pneumonia. He is breathing more comfortably this morning. He is maintaining O2 saturations of 91% to 99% on 3 liters of O2. His white count has dropped from 21,000 to 16,000. He has been highly agitated and restless. Dr. Barros finally gave him Haldol and Ativan, and he slept fairly comfortably after midnight. This morning he is having diffuse shaking movements and writhing movements of the upper extremities. He had been on Haldol at the [facility]. He is currently on Levaquin and clindamycin for the aspiration pneumonia. He has a history of chronic atrial fibrillation. On arrival to the ER, he was noted to be in atrial fibrillation with RVR. He was started on a Cardizem drip. He remains in atrial fibrillation, but his heart rate has ranged from 70 to 85. OBJECTIVE: Vital Signs: Temperature 97.5 degrees, pulse 70, respirations 18, blood pressure 134/70. Cardiovascular: Irregularly irregular. Lungs: Scattered wheezing with forced expiration and diminished breath sounds in the right base. Abdomen: Soft, nontender, with active bowel sounds. ASSESSMENT AND PLAN: 1. Acute respiratory failure with hypoxia secondary to acute chronic obstructive pulmonary disease exacerbation with aspiration pneumonia. We will continue supplemental O2, DuoNeb nebulizer treatments, and broad-spectrum antibiotics including Rocephin and clindamycin. Because of the shaking, I am going to discontinue the Levaquin, as well as the Haldol. I will recheck a portable chest x-ray in the morning. 2. Chronic atrial fibrillation. His heart rate has improved significantly on IV Cardizem. He is still not waking up to painful or verbal stimuli. I do not believe that he would be able to safely take oral medicines. We will continue him on IV Cardizem drip to maintain his heart rate until the time he is able to take medicines orally. I really do not want to have to place a nasogastric tube. 3. End-stage dementia with delirium. We will continue Ativan 1 mg IV every 4 hours as needed for agitation, as well as aggressive management of the underlying pneumonia. I had a long talk with Mrs. Tyler. Mr. tyler does have a living will. She told me that in the event of a cardiopulmonary arrest that she did not feel that he would want us to place him on the ventilator, perform cardiopulmonary resuscitation, or give him medications. No Code Blue Level 1 has been established. cc: MD eCzar Gamble MD
[2016-10-11] MEDS: LASIX IV SCH (09:40)
[2016-10-11] MEDS: LOVENOX SUBQ SCH (14:03)
[2016-10-11] MEDS: TYLENOL PR PRN (16:16)
[2016-10-11] MEDS: GEODON IM PRN (18:49)
[2016-10-11] MEDS: ALBUTEROL NEB INH PRN (19:28)
[2016-10-11] MEDS: ZOSYN 4.5 GM/NS 4.5 GM/100 ML IVPB IV SCH (21:14)
[2016-10-12] MEDS: CARDIZEM 100 MG/NS 100 MG/100 ML IVPB IV SCH ×6 (02:05→23:58)
[2016-10-12] MEDS: GEODON IM PRN ×3 (02:13→16:11)
[2016-10-12] MEDS: STERILE WATER INJ. INJ PRN ×2 (02:14→16:11)
[2016-10-12] MEDS: ALBUTEROL NEB INH PRN (02:42)
[2016-10-12] MEDS: ATIVAN IV PRN ×4 (03:05→23:58)
[2016-10-12] MEDS: ZOSYN 4.5 GM/NS 4.5 GM/100 ML IVPB IV SCH ×4 (04:29→21:41)
[2016-10-12] MEDS: SYNTHROID PO SCH (06:22)
[2016-10-12] MEDS: PROTONIX IV SCH (06:36)
[2016-10-12] MEDS: SODIUM CHLORIDE 0.9% INJ SCH (06:37)
[2016-10-12] MEDS ORDERED: LASIX ONE (09:17)
[2016-10-12] MEDS: LASIX IV SCH (09:23)
[2016-10-12] MEDS ORDERED: STERILE WATER INJ. ONE (09:34)
[2016-10-12] MEDS: LOVENOX SUBQ SCH (14:48)
--- NOTE | 2016-10-12 15:41 | PROGRESS NOTE ---
DATE: 10/12/2016 SUBJECTIVE: Mr. Fraga continues with a persistent cough, pleuritic chest pain worse with deep inspiration and paroxysms of cough, mild shortness of breath, and spiked a fever to 101 degrees last night. Chest x-ray showed a right lower lobe pneumonia. Sputum cultures grew out Klebsiella pneumoniae. We switched him to Zosyn 4.5 g IV q.6 hours last night. He continues to be non- arousable to verbal or painful stimuli. He has been very agitated at times. He has been having persistent movements of his upper and lower extremities. He is trying to get out of bed. He remains in atrial fibrillation. His heart rate is well controlled on a Cardizem drip. OBJECTIVE: Vital Signs: T-max 101.8 degrees. Temperature 98.1 degrees, respiratory rate 24, pulse 83, BP 126/52, O2 saturation 95 to 97% on supplemental O2. General: This is a chronically ill-appearing, 86-year-old gentleman who is not arousable to verbal or painful stimuli. He is having writhing motions of his upper extremities and is highly agitated. CV: Irregularly irregular. Lungs: Diffuse wheezing with forced expiration with diminished breath sounds in the right base. Abdomen: Soft, nontender, with active bowel sounds. ASSESSMENT AND PLAN: 1. Chronic atrial fibrillation. His heart rate is well controlled on a Cardizem drip. As he is unarousable we cannot give him oral diltiazem. We will continue the Cardizem drip to maintain a heart rate less than 100. I did talk to Mrs. Fraga about the possibility of placing an NG tube where we could give him oral medicines, but she does not want to place a tube at this time. 2. Metabolic encephalopathy secondary to gram negative pneumonia with sepsis. His blood pressure is stable. He has had fevers in excess of 101. He has been tachycardic and tachypneic. We will continue supplemental O2, DuoNeb nebulizer treatments, and broad-spectrum IV antibiotics including Zosyn. 3. End-stage dementia with delirium. I am going to increase the Geodon to 20 mg IM q.6 hours and increase the Ativan to 2 mg IV q.2 hours p.r.n. agitation. cc: MD Cezar Gamble MD
[2016-10-12] MEDS: DUONEB (A & A) INH SCH ×2 (15:44→19:03)
[2016-10-13] MEDS: DUONEB (A & A) INH SCH ×6 (02:35→19:00)
[2016-10-13] MEDS: ZOSYN 4.5 GM/NS 4.5 GM/100 ML IVPB IV SCH (04:33)
[2016-10-13 05:56] LABS: BASO% 0.1 % (0.0-0.8); HEMATOCRIT 35.2 % (42.0-52.0); HEMOGLOBIN 11.4 g/dL (14.0-18.0); IMM GRAN# 0.06 X1000 (0.0-0.04); IMM GRAN% 0.4 % (0.0-0.5); LYMPH# 0.79 X1000 (1.2-3.4); LYMPH% 4.7 % (20.5-51.1); MANUAL DIFF NEEDED? YES; MCH 31.1 PG (27-31); MCHC 32.4 g/dL (33-37); MCV 96.2 FL (81-99); MONO# 1.12 X1000 (0.11-0.59); MONO% 6.6 % (1.7-9.3); MPV 10.6 FL (7.4-10.4); NEUT% 88.2 % (42.2-75.2); PLT 303 X1000 (130-400); RBC 3.66 XMIL (4.7-6.1)
[2016-10-13 06:03] LABS: AGAP 15; BUN 20 mg/dL (8-22); CHLORIDE 107 mmol/L (98-107); COSMO 306; POTASSIUM 2.7 mmol/L (3.5-5.1); SODIUM 152 mmol/L (136-145); TCO2 30 mmol/L (25-35)
[2016-10-13] MEDS: ATIVAN IV PRN ×3 (06:45→18:20)
[2016-10-13] MEDS: SYNTHROID IV SCH (06:45)
[2016-10-13] MEDS: SODIUM CHLORIDE 0.9% INJ PRN (06:45)
[2016-10-13] MEDS: SODIUM CHLORIDE 0.9% INJ SCH (06:46)
[2016-10-13] MEDS: PROTONIX IV SCH (06:46)
[2016-10-13] MEDS: CARDIZEM 100 MG/NS 100 MG/100 ML IVPB IV SCH ×3 (06:48→21:54)
--- NOTE | 2016-10-13 07:23 | Diag Imaging Result Doc PS360 ---
EXAM: CHEST-PORTABLE INDICATION: GRAM NEGATIVE PNEUMONIA COMPARISON: 10/10/2016 FINDINGS: Consolidation at the medial right lung base has worsened somewhat during the interval. Mild increased interstitial markings bilaterally are essentially stable. Cardiac silhouette is unchanged. IMPRESSION: Worsening infiltrate at the medial right lung base. Electronically signed by Jorge Sandoval 10/13/2016 7:21 AM
[2016-10-13 07:39] LABS: LYMPHS 3 % (21-51); MONO 5 % (1-9)
[2016-10-13] MEDS ORDERED: LANOXIN IV ONE (08:39)
[2016-10-13] MEDS: NS + KCL 20 MEQ 1,000 ML IV SCH ×2 (09:24→22:05)
[2016-10-13] MEDS: KEFZOL 1 GM/D5W 1 GM/50 ML IVPB IV SCH ×2 (09:25→17:24)
[2016-10-13] MEDS: MYCOSTATIN POWDER TOP SCH ×2 (09:25→21:56)
[2016-10-13] MEDS: CARDIZEM PO SCH ×2 (13:44→21:56)
[2016-10-13] MEDS: LANOXIN IV SCH ×2 (13:51→17:58)
[2016-10-13] MEDS: LOVENOX SUBQ SCH (13:51)
[2016-10-13] MEDS: TYLENOL PR PRN (22:05)
[2016-10-13] MEDS: GEODON IM PRN (22:06)
[2016-10-13] MEDS: STERILE WATER INJ. INJ PRN (22:06)
[2016-10-14] MEDS: KEFZOL 1 GM/D5W 1 GM/50 ML IVPB IV SCH ×2 (00:02→08:27)
[2016-10-14] MEDS: LANOXIN IV SCH (00:08)
[2016-10-14] MEDS: DUONEB (A & A) INH SCH ×4 (02:28→15:50)
[2016-10-14] MEDS: NS + KCL 20 MEQ 1,000 ML IV SCH (06:36)
[2016-10-14] MEDS: ATIVAN IV PRN (06:37)
[2016-10-14] MEDS: CARDIZEM PO SCH ×2 (06:37→12:44)
[2016-10-14] MEDS: SYNTHROID IV SCH (06:37)
[2016-10-14] MEDS: CARDIZEM 100 MG/NS 100 MG/100 ML IVPB IV SCH (06:37)
[2016-10-14] MEDS: PROTONIX IV SCH (06:42)
[2016-10-14] MEDS: SODIUM CHLORIDE 0.9% INJ SCH (06:42)
[2016-10-14] MEDS: SODIUM CHLORIDE 0.9% INJ PRN (06:42)
[2016-10-14] MEDS ORDERED: ATIVAN IV PRN (07:57)
[2016-10-14] MEDS ORDERED: CATAPRES-TTS-2 TD SCH (08:00)
[2016-10-14] MEDS ORDERED: LANOXIN IV SCH (09:00)
[2016-10-14] MEDS ORDERED: DILAUDID IV ONE (09:13)
[2016-10-14 11:11] VITALS: BP 149/59
[2016-10-14] MEDS: MYCOSTATIN POWDER TOP SCH (11:52)
--- NOTE | 2016-10-14 18:57 | DISCHARGE SUMMARY ---
ADMISSION DATE: 10/10/2016 DISCHARGE DATE: 10/14/2016 FINAL DIAGNOSES: 1. Pneumonia, Klebsiella pneumoniae cultured, due to: 2. Alzheimer's dementia with superimposed delirium and: 3. 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 4. Essential hypertension. 5. History of coronary artery disease. 6. Chronic atrial fibrillation. PRESENT ILLNESS: Mr. Fraga is an 86-year-old gentleman with a recent history of aspiration pneumonia, worsening dementia, and superimposed delirium. He was sent from [facility] rehab because of fever and reduced oxygen saturation. In the emergency room he was evaluated and found to have a new right-sided pulmonary infiltrate and markedly elevated white blood count of 21,000. His provided additional history that since arriving in rehab he had been sleeping very poorly at night, very restless and agitated, although he seemed to cooperate fairly well with therapy during the day. Approximately 6 weeks ago he was hospitalized for aspiration pneumonia that responded to antibiotics, but he became extremely delirious and was discharged to the [facility] rehab at [facility]. He went home overnight from there and due to extreme weakness was readmitted for rehab placement. PHYSICAL EXAMINATION: Vital signs: Temperature 101.3 degrees, heart rate 134 and irregular, respirations 34, blood pressure 161/120. General Appearance: He was initially poorly responsive but during the examination he did open his eyes and appeared to recognize me. He did not respond to voices but his hearing aids were missing. Chest Exam: Revealed bronchial breath sounds over the right axilla. Abdomen: Soft and nontender. DIAGNOSTIC DATA: Chest x-ray showed fluffy alveolar opacity over the right hemidiaphragm and some interstitial edema. HOSPITAL COURSE: He was admitted to the CICU for rate control with a Cardizem drip, and attempts were made to give him his oral medication but he basically was unable to swallow. A sputum specimen was obtained and subsequently grew Klebsiella sensitive to most antibiotics. He was treated initially with intravenous Zosyn and then later this was changed to Ancef once sensitivities became available. His white blood count improved somewhat but he remained mostly unresponsive and delirious, and was intermittently restless and agitated but never coherent. Approximately 24 hours prior to his oxygen saturation became very low and he required high- flow mask O2. This afternoon at 4:29 he was on telemetry, was noted to have a sudden rhythm change to an idioventricular rhythm. When I arrived, he was pulseless and apneic and with very minimal wide complex rhythm on the monitor. He was pronounced at 4:45 p.m. cc: Cezar Barros MD MTDD
--- NOTE | 2016-10-29 15:11 | PROVIDER DOCUMENTATION ---
This chart was entered by Daija Agee Scribe, acting as scribe for Samantha Erickson MD. HPI-Respiratory General - General Stated Complaint: low o2 sat Time Seen by Provider: 10/10/16 11:13 Source: patient, EMS (1st response) Unable to obtain history due to:: altered Allergies/Adverse Reactions: Patient Allergies Allergy/AdvReac Type Severity Reaction Status Date / Time Ssgqwja-Pby-Ajt Reductase Allergy Mild un Verified 10/10/16 11:37 Inhibitor morphine Allergy Unknown Verified 10/10/16 11:37 Home Medications: Home Medication List Medication Instructions Recorded Confirmed Last Taken Type Multivitamin [Multi-Vitamin Daily] 1 each PO QPM 09/09/16 10/10/16 09/26/16 History Bumetanide 2 mg PO QAM 09/16/16 10/10/16 09/27/16 History Omeprazole 40 mg PO DAILY 09/16/16 10/10/16 09/27/16 History Duloxetine [Cymbalta] 30 mg PO DAILY #30 capsule 09/25/16 10/10/16 09/27/16 Rx Aspirin 81 mg PO HS #30 chewtab 09/26/16 10/10/16 09/26/16 Rx Diltiazem C.d. [Cardizem Cd] 120 mg PO QHS #30 capsule 09/26/16 10/10/16 Rx Diltiazem C.d. [Cardizem Cd] 180 mg PO QHS #30 capsule 09/26/16 10/10/16 Rx Finasteride [Proscar] 5 mg PO WSUPPER #30 tablet 09/26/16 10/10/16 09/26/16 Rx Guaifenesin E.r. [Mucinex] 600 mg PO BID #60 tablet 09/26/16 10/10/16 09/27/16 Rx Isosorbide Mononitrate E.r. [Imdur] 30 mg PO DAILY #30 tablet 09/26/16 10/10/16 09/27/16 Rx Levothyroxine [Synthroid] 100 microgm PO DAILY@0700 #30 09/26/16 10/10/16 Rx tablet Potassium Chloride [Klor-Con M20] 1 tab PO TID #90 tab.er.prt 09/26/16 10/10/16 09/27/16 Rx Torsemide [Demadex] 20 mg PO DAILY #30 tablet 09/26/16 10/10/16 09/27/16 Rx Acetaminophen [Tylenol] 650 mg PO Q4H PRN PRN #0 tablet 09/30/16 10/10/16 Unknown Rx Albuterol [Albuterol Neb] 1.25 mg INH Q4H PRN PRN #0 neb 09/30/16 10/10/16 Unknown Rx Ramelteon [Rozerem] 8 mg PO QHS tablet 09/30/16 10/10/16 Unknown Rx - History of Present Illness-Resp Nature of Presenting Problem: 86 y/o M presents to ED per EMS. Pt is from [facility] where his 02 stats are low. EMS states on their arrival pt 02 was 73% on nasal cannel, pt was switched to a non rebreather where is 02 stat increased some. EMS reports pt having a cough. Pt does have hx of copd/chf. Pt has 2+ pedal edema. Pt is alert. Quality of Pain: reports: none Severity in ED: reports: moderate Onset/Duration: reports: unsure Timing: reports: still present Exposure: reports: unknown cause Cough Quality/Degree: reports: mild Current Respiratory Medication Therapy: Initiated see nurses note Modifying Factors: improves with: nothing Associated Symptoms: reports: shortness of breath Similar Symptoms Previously?: No Recently seen or treated by another doctor?: No Review of Systems - Adult - REVIEW OF SYSTEMS - ADULT ROS:: limited per condition Constitutional: reports: no symptoms reported Respiratory: reports: cough, shortness of breath, other (low 02 stat). denies: dyspnea on exertion Neurological: denies: dizziness/vertigo, headache/migraines Past History - Adult - PAST MEDICAL HISTORY-ADULT Review of Records: reports: Old Records Reviewed, Nursing Assessment Review Cardiovascular: reports: A-Fib, HTN, hyperlipidemia Respiratory: reports: COPD, other (chronic/recurrent aspiration) Gastrointestinal: reports: GERD Neurological: reports: dementia Endocrine/Immune: reports: thyroid disorder - PRIOR SURGERIES/PROCEDURES Surgical/Procedure History: reports: back/neck, other (cataract removal) - IMMUNIZATION STATUS Childhood Immunizations: See Nurse Assessment Flu Vaccine: See Nurse Assessment - FAMILY HISTORY Family History: reviewed, not pertinent - SOCIAL HISTORY Smoking: denies, non-smoker Substance Use: none/never, denies Physical Exam-General - PHYSICAL EXAM-ADULT Initial Vital Signs Reviewed: Yes - CONSTITUTIONAL General Appearance: alert, mild distress - EYES Eyes: pink conjunctivae - HEAD, EARS, NOSE, MOUTH & THROAT HENMT: moist mucous membranes, normal ENT inspection - NECK Neck: non-tender - RESPIRATORY Respiratory: decreased breath sounds (right side), rales, rhonchi, increased rate - CARDIOVASCULAR Cardiovascular: tachycardia - GASTROINTESTINAL (ABDOMEN) Abdominal Exam: normal bowel sounds, non tender, soft - LYMPHATIC Lymphatic: no adenopathy - MUSCULOSKELETAL Back Exam: no CVA tenderness, no vertebral tenderness Extremity: non-tender, pulse deficit Peripheral Pulses: dorsalis-pedis (R): 2+, dorsalis-pedis (L): 2+ - SKIN Integumentary: normal color, normal turgor, warm/dry - NEUROLOGIC Neurologic: grossly normal - PSYCHIATRIC Psych/Mental Status: other (alert) Progress - PLAN OF CARE/RESULTS Progress/Plan/Lab Results: Orders Category Date Time Status Admit - [facility] Routine AdmDCTranf 10/10/16 14:51 Ordered Activity - Up with Assistance ORDERED Care 10/10/16 14:51 Active Apply Mechanical Device [QM] ORDERED Care 10/10/16 14:51 Active Cardiac Monitoring DIRECTED Care 10/10/16 11:14 Completed Elevate Head of Bed DIRECTED Care 10/10/16 14:51 Active Encourage Fluids DIRECTED Care 10/10/16 14:51 Active Saline Loc DIRECTED Care 10/10/16 14:51 Active Saline Loc NOW Care 10/10/16 11:14 Completed Vital Signs Order Q 8-HR ASSESS Care 10/10/16 14:51 Completed CHEST-PORTABLE [RAD] Stat Exams 10/10/16 11:38 Completed ABG [RESP] Routine Lab 10/10/16 11:50 Completed BLOOD CULTURE [BLDCUL] Stat Lab 10/10/16 11:26 Completed CBC WITH DIFF [HEME] Routine Lab 10/11/16 04:57 Completed CBC WITH ELECTRONIC DIFF [HEME] Stat Lab 10/10/16 11:28 Completed CK PROFILE [SP CHEM] Stat Lab 10/10/16 11:28 Completed COMPREHENSIVE METABOLIC PANEL [CHEM] Stat Lab 10/10/16 11:28 Completed D-DIMER [CHEM] Stat Lab 10/10/16 11:28 Completed LACTATE, PLASMA [CHEM] Stat Lab 10/10/16 11:28 Completed MAGNESIUM [CHEM] Stat Lab 10/10/16 11:28 Completed PRO B-NATRIURETIC PEPTIDE Stat Lab 10/10/16 11:28 Completed PROTIME WITH INR [COAG] Stat Lab 10/10/16 11:28 Completed PTT [COAG] Stat Lab 10/10/16 11:28 Completed SPUTUM CULTURE WITH GRAM STAIN [RM] Routine Lab 10/10/16 13:30 Completed TROPONIN T Stat Lab 10/10/16 11:28 Completed URINALYSIS W/POSS RFLX CULT-1 [URINALYSIS] Stat Lab 10/10/16 11:30 Completed Acetaminophen [Tylenol] Med 10/10/16 12:36 Discontinued 500 mg PO NOW ONE Acetaminophen [Tylenol] Med 10/10/16 14:51 Discontinued 650 mg PO Q4H PRN PRN Albuterol [Albuterol Neb] Med 10/10/16 14:51 Discontinued 1.25 mg INH Q4H PRN PRN Aspirin Med 10/10/16 11:14 Discontinued 325 mg PO STAT STA Azithromycin 500 mg/Ns [Zithromax 500 mg/Ns] Med 10/10/16 12:18 Discontinued 500 mg in 250 ml IV NOW CefTRIAXONE 1 GM/NS [Rocephin 1 gm/Ns] Med 10/10/16 12:18 Discontinued 1 gm in 50 ml IV NOW Clindamycin 600 mg/Ns Med 10/10/16 14:51 Discontinued 600 mg in 50 ml IV Q8H Clonidine [Catapres] Med 10/10/16 21:00 Discontinued 0.2 mg PO HS Diltiazem 100 mg/Ns [Cardizem 100 mg/Ns] Med 10/10/16 11:43 Discontinued 100 mg in 100 ml IV 5 mg/hr Diltiazem C.d. [Cardizem Cd] Med 10/10/16 21:00 Discontinued 120 mg PO QHS Diltiazem C.d. [Cardizem Cd] Med 10/10/16 21:00 Discontinued 180 mg PO QHS Diltiazem [Cardizem] Med 10/10/16 11:43 Discontinued 10 mg IV NOW ONE Duloxetine [Cymbalta] Med 10/11/16 09:00 Discontinued 30 mg PO DAILY Enoxaparin [Lovenox] Med 10/10/16 14:51 Discontinued 30 mg SUBQ Q24H Furosemide [Lasix] Med 10/11/16 09:00 Discontinued 40 mg IV DAILY Furosemide [Lasix] Med 10/10/16 12:35 Discontinued 40 mg IV NOW ONE Haloperidol Lactate [Haldol] Med 10/10/16 18:00 Discontinued 5 mg IM ONCE ONE Isosorbide Mononitrate E.r. [Imdur] Med 10/11/16 09:00 Discontinued 30 mg PO DAILY Levalbuterol Neb [Xopenex Neb] Med 10/10/16 11:14 Discontinued 1.25 mg INH NOW ONE Levofloxacin 500 mg/D5w [Levaquin 500 mg/D5w] Med 10/10/16 18:00 Discontinued 500 mg in 100 ml IV Q24H Levothyroxine [Synthroid] Med 10/11/16 07:00 Discontinued 100 microgm PO DAILY@0700 Omeprazole [Prilosec] Med 10/11/16 07:00 Discontinued 40 mg PO DAILY@0700 Sodium Chloride 0.9% Neb [Ns Neb] Med 10/10/16 11:15 Discontinued 5 ml INH DIRECTED Vancomycin 1 gm/Ns Med 10/10/16 14:51 Discontinued 1 gm in 250 ml IV NOW Aerosol Treatments Routine Oth 10/10/16 11:15 Completed Aerosol Treatments Stat Oth 10/10/16 11:15 Completed Oxygen Device Routine Oth 10/10/16 14:51 Completed Pulse Oximetry Routine Oth 10/10/16 14:51 Completed Telemetry [OM.EQ] Routine Oth 10/10/16 14:51 Active EKG [EKG] Stat Ther 10/10/16 11:14 Draft Physical Therapy Eval/Treatment [OM.PT] Routine Ther 10/10/16 14:51 Active Transfer/Admit Order [TRANSFER] Routine Transfer 10/10/16 13:28 Completed PLAN: LABS, MEDICATION , BT, EKG, MONITOR PT AND 02 STAT Result Diagrams: 10/13/16 04:41 10/13/16 04:41 - REASSESSMENT Reassessment #1 Time Reassessed: 12:19 Status: unchanged (XRAY HAS BEEN READ. NEW ORDERS HAVE BEEN PLACED.) Reassessment #2 Time Reassessed: 13:08 Status: unchanged Reassessment Comment: is at bedside and will be taking over care of care of pt. - XRAY 1 XRAY: Bilateral XRAY Study: Chest Impression: Abnormal XRAY Interpretation: Pulmonary edema versus pneumonia- Dr. Roach(radiologist ) - CHANGE OF SHIFT REPORT (ED Provider) Report Given and Care Transferred to:: (PCP) Time of Transfer: 13:11 Items Pending: Other (ADMISSION) Departure - Departure Date of Disposition Decision: 10/10/16 Time of Disposition Decision: 13:07 DIAGNOSIS: CHF (congestive heart failure), Pneumonia, Afib Disposition: ADMITTED INPATIENT 09 Certified Medical Emergency: Emergent Condition: - Critical Care Note This patient required my direct & personal management of CC.: Yes Total Time (mins): 45 Critical Care Statement: This patient required my direct personal management to treat or rule out processes, the absence of which, could potentiallly result in sudden, clinically significant life or limb threatening deterioration. This chart was documented by the indicated scribe, (Daija Agee Scribe) and accurately reflects the services I performed and decisions made by me, Samantha Erickson MD, as attested by the provider's signature.
== END 2016-10-14 16:49 | disposition expired ==
LOC: ED 11:10 → 3S 14:14
PROVIDERS: ADMIT Internal Medicine; ATTEND Internal Medicine